=== PATIENT | male | born 1980 | race Caucasian/White ===

== ENCOUNTER 2020-10-11 11:17 | Outpatient (REF) | payer OTHER, SELFPAY | END 2020-10-11 11:18 | disposition home or self-care (01) | LOC: HO.HMGCLDS 11:17 | PROVIDERS: Visit Provider Internal Medicine | DX: Z20.822 Contact with and (suspected) exposure to COVID-19 (principal) | CPT/HCPCS: C9803; U0003; U0005 ==

== ENCOUNTER 2021-04-10 06:41 | Outpatient (REF) | payer OTHER, SELFPAY ==
[2021-04-10 11:35] LABS: Appearance Urine TURBID; Color Urine DK YELLOW; Glucose Urine UA NEG (NEG); Leukocyte Esterase Urine TRACE (NEG); Nitrite Urine POS (NEG); Specific Gravity - Urine >= 1.030 (1.005-1.025); UACC Culture Trigger YES; Urine Blood NEG (NEG); Urine Ketones NEG (NEG); Urine Protein 1+ MG/DL (NEG-TRACE)
[2021-04-10 11:39] LABS: MANUAL DIFF FLAG NO
[2021-04-10 11:45] LABS: Basophils Absolute Auto 0.1 X10*3/uL (0.0-0.2); Basophils Percent Auto 1.3 % (0-2); Eosinophils Absolute Auto 0.4 X10*3/uL (0.0-0.4); Eosinophils Percent Auto 4.2 % (0-4); Hematocrit 40.3 % (42-52); Hemoglobin 12.5 g/dl (14.0-18.0); Imm Gran Abs Auto 0.03 X10*3/uL (0.00-0.03); Imm Gran Pct Auto 0.4 % (0.0-0.4); Lymphocytes Absolute Auto 1.6 X10*3/uL (1.2-4.9); Lymphocytes Percent Auto 19.4 % (20-40); Mean Corpuscular Hemoglobin 26.9 pg (27.0-33.0); Mean Corpuscular Volume 86.9 fL (80-98); Mean Platelet Volume 10.5 fL (9.4-12.4); Monocytes Absolute Auto 0.9 X10*3/uL (0.1-1.2); Monocytes Percent Auto 10.9 % (2-11); Neutrophils Absolute Auto 5.4 X10*3/uL (2.0-8.3); Neutrophils Percent Auto 63.8 % (45-73); Platelet Count 271 X10*3/uL (160-400); Red Blood Count 4.64 X10*6/uL (4.60-5.80); Red Cell Distribution Width 18.2 % (11.0-16.0); White Blood Count 8.4 X10*3/uL (4.8-10.8)
[2021-04-10 12:17] LABS: Alanine Aminotransferase 65 U/L (0-40); Albumin Level 3.9 g/dL (3.5-5.0); Alkaline Phosphatase 160 U/L (39-117); Anion Gap 18 (12-20); Aspartate Amino Transferase 132 U/L (5-37); Blood Urea Nitrogen 4 mg/dL (9-16); Calcium 9.1 mg/dL (8.4-10.2); Carbon Dioxide 21 mmol/L (22-29); Chloride 105 mmol/L (96-108); Cholesterol 161 mg/dL; Estimated Glomerular Filt Rate > 60; Glucose Fasting 98 mg/dL (60-99); HDL Cholesterol 40 mg/dL; LDL Cholesterol Calculated 98 mg/dl; Potassium 3.7 mmol/L (3.3-5.1); Sodium 140 mmol/L (135-145); Triglycerides 116 mg/dL
[2021-04-10 12:18] LABS: TSH reflex Free T4 2.55 uIU/mL (0.32-4.0)
[2021-04-10 12:43] LABS: OBS Int Ctl Valid YES; OBS1 NEGATIVE (NEGATIVE)
[2021-04-10 12:59] LABS: Amorphous Sediment Urine 4+ /LPF; Bacteria Urine TRACE /LPF; RBC Urine 0 /HPF (0); Squamous Epithelial Cell Urine TRACE /LPF; WBC Urine 0-2 /HPF (0-4)
[2021-04-10 13:52] LABS: CDiff Gene PCR NEGATIVE (Negative)
[2021-04-10 14:13] LABS: Leukocytes Stool Qualitative NEGATIVE (NEGATIVE)
== END 2021-04-10 06:42 | disposition home or self-care (01) ==
LOC: HO.HMGCLDS 06:41
PROVIDERS: PCP Nurse Practitioner Family; Visit Provider Nurse Practitioner Family
DX: Z00.00 Encounter for general adult medical examination without abnormal findings (principal); R19.7 Diarrhea, unspecified
CPT/HCPCS: 36415; 80053; 80061; 81001; 82272; 84443; 85025; 87045; 87046; 87086; 87177; 87209; 87329; 87338; 87493; 89055

== ENCOUNTER 2021-04-30 12:04 | Outpatient (REF) | payer OTHER, SELFPAY ==
[2021-05-01 09:05] LABS: HBS Num1 24.54 mIU/mL (0-7.99); HBc Num1 0.04 S/CO (0.00-0.79); HBsAGNum1 0.15 S/CO (0.00-0.99); Hepatitis A Antibody IgM 0.16 Index (0-0.79); Hepatitis B Core Antibody Nonreactive (Nonreactive); Hepatitis B Surface Antigen Negative (Negative); ~HepC Num1 0.67 S/CO (0.00-0.79); ~Hepatitis A Antibody IgM Nonreactive (Nonreactive); ~Hepatitis B Surface Antibody REACTIVE (Nonreactive); ~Hepatitis C Antibody Nonreactive (Nonreactive)
== END 2021-04-30 12:05 | disposition home or self-care (01) ==
LOC: HO.HMGCLDS 12:04
PROVIDERS: PCP Nurse Practitioner Family; Visit Provider Nurse Practitioner Family
DX: R74.8 Abnormal levels of other serum enzymes (principal)
CPT/HCPCS: 36415; 86704; 86706; 86709; 86803; 87340

== ENCOUNTER 2021-05-14 10:09 | Outpatient (REF) | payer OTHER, SELFPAY ==
--- NOTE | ~2021-05-14 | US_ITS ---
EXAMINATION: US ABDOMEN COMPLETE CLINICAL INFORMATION: Abnormal levels of other serum enzymes. COMPARISON: None TECHNIQUE: Real-time imaging of the abdominal viscera. FINDINGS: PANCREAS: Normal. ABDOMINAL AORTA: The proximal, mid, and distal segments are normal in caliber. INFERIOR VENA CAVA: Visualized portions are normal. LIVER: The liver is normal in size. The liver contour is normal. There is increased liver echogenicity. No focal hepatic lesion. There is no intrahepatic biliary duct dilatation seen. GALLBLADDER: Normal. The gallbladder is physiologically distended without evidence of stones, sludge, polyps, wall thickening or pericholecystic fluid. COMMON BILE DUCT: Normal in caliber measuring 0.3 cm in diameter. RIGHT KIDNEY: Normal. No hydronephrosis. No renal calculi or focal parenchymal lesions. The kidney measures 10.4 cm in maximum dimension. LEFT KIDNEY: There is an echogenic area in the midpole question stone versus calcification measuring 0.47 x 0.34 x 0.30 cm. Also visualized are multiple echogenic areas, question vascular calcifications. No hydronephrosis or focal parenchymal lesions. The kidney measures 9.9 cm in maximum dimension. SPLEEN: Normal. The spleen measures 10.2 cm in maximum dimension. FREE FLUID: None. US/US abdomen complete IMPRESSION: Diffuse hepatic steatosis without focal lesion. Multiple small echogenic areas in the left kidney likely vascular calcifications. Focal echogenic area in the midpole left kidney, question stone versus vascular calcification. Rest of the abdominal ultrasound is unremarkable.
== END 2021-05-14 10:10 | disposition home or self-care (01) ==
LOC: HO.HMGCX 10:09
PROVIDERS: PCP Nurse Practitioner Family; Visit Provider Nurse Practitioner Family
DX: R74.8 Abnormal levels of other serum enzymes (principal)
CPT/HCPCS: 76700

== ENCOUNTER 2021-05-15 | Outpatient (REF) | payer OTHER, SELFPAY ==
[2021-05-15 11:23] LABS: Appearance Urine CLEAR; Color Urine STRAW; Glucose Urine UA NEG (NEG); Leukocyte Esterase Urine NEG (NEG); Nitrite Urine NEG (NEG); Specific Gravity - Urine <= 1.005 (1.005-1.025); Urine Blood NEG (NEG); Urine Ketones NEG (NEG); Urine Protein NEG (NEG-TRACE)
[2021-05-15 14:30] LABS: CT PCR NOT DETECTED (Not Detect.); NG PCR NOT DETECTED (Not Detect.)
== END 2021-05-15 00:01 | disposition home or self-care (01) ==
LOC: HO.HMGCLNP
PROVIDERS: Visit Provider Nurse Practitioner Family
DX: Z11.3 Encounter for screening for infections with a predominantly sexual mode of transmission (principal); N39.0 Urinary tract infection, site not specified
CPT/HCPCS: 81003; 87491; 87591

== ENCOUNTER 2022-02-26 14:21 | Outpatient (REF) | payer OTHER, SELFPAY | END 2022-02-26 14:22 | disposition home or self-care (01) | LOC: HO.LNP 14:21 | PROVIDERS: Visit Provider Emergency Medicine | DX: S99.911D Unspecified injury of right ankle, subsequent encounter (principal); A49.01 Methicillin susceptible Staphylococcus aureus infection, unspecified site | CPT/HCPCS: 87071; 87077; 87186; 87205 ==

== ENCOUNTER 2022-03-28 14:55 | Inpatient (IN) | payer OTHER, SELFPAY ==
--- NOTE | ~2022-03-28 | XR_ITS ---
EXAMINATION: XR chest 2V CLINICAL INFORMATION: Reason for Exam weakness COMPARISON: No prior chest x-ray available in our system for comparison at the time of this dictation. TECHNIQUE: XR chest 2V Lungs and Alaina: Both lungs are clear. Pleura: Normal. Costophrenic angles are sharp. No pneumothorax. Heart: The heart is normal in size. Mediastinum: The mediastinum is within normal limits.. Bones: Skeletal structures included are normal for patient's age. XR/XR chest 2V IMPRESSION: Normal chest x-ray.
--- NOTE | ~2022-03-28 | CT_ITS ---
EXAMINATION: CT abdomen pelvis w IV con CLINICAL INFORMATION: Reason for Exam AND pain, nausea, WT loss COMPARISON: No prior CT available for comparison. TECHNIQUE: Multidetector volumetric imaging was performed from the superior aspect of the liver through the pubic symphysis 85 mL Omnipaque 350 injected Sagittal and coronal reformatted images were obtained on the technologist's workstation. This CT examination was performed using dose optimization techniques as appropriate, variously including the following: *Automated exposure control *Adjustment of mA and/or kV according to patient size (this includes techniques or standardized protocols for targeted exams where dose is matched to indication/reason for exam; i.e. extremities or head) *Use of iterative reconstruction technique DLP: 306 mGy-cm FINDINGS: LOWER THORAX: Included lung bases are clear. HEPATOBILIARY: Diffusely hypodense liver suggesting steatosis. No focal hepatic lesions. No biliary ductal dilatation. GALLBLADDER: Gallbladder unremarkable. SPLEEN: Spleen is normal in size. PANCREAS: No focal mass or ductal dilatation. STOMACH AND GASTROINTESTINAL TRACT: Stomach is grossly unremarkable. No evidence of bowel obstruction. There is mild circumferential wall thickening terminal ileum, without evidence of bowel obstruction, although nonspecific, cannot rule out the possibility of IBD Crohn's or terminal ileitis. ADRENALS: No adrenal nodules. KIDNEYS/URETERS: No hydronephrosis, stones or solid mass lesions. URINARY BLADDER: Partially decompressed. PELVIC VISCERA: Unremarkable PERITONEUM: No free air or fluid. LYMPH NODES: No lymphadenopathy. VASCULAR:Abdominal aorta normal in size, no aneurysm found. BONES, ABDOMINAL WALL AND SOFT TISSUES: Age-appropriate changes of the spine and skeletal system, no destructive osteolytic or osteosclerotic bone lesion found CT/CT abdomen pelvis w IV con IMPRESSION: *Mild circumferential wall thickening of the terminal ileum at the TI junction, although nonspecific and could be peristalsis, cannot rule out the possibility of IBD/Crohn's, no evidence of obstruction or complication. Please correlate with patient's clinical history, may consider GI consultation. *No CT evidence of intra-abdominal mass or lymphadenopathy. *Mildly hypodense liver suggesting steatosis.
[2022-03-28 15:11] VITALS: BP 121/89; PULSE 106; RESP 18; TEMP 37.2; O2SAT 100; BMI 19.0
--- NOTE | 2022-03-28 15:16 | ECG_ITS ---
Test Reason : WEAKNESS Blood Pressure : / mmHG Vent. Rate : 110 BPM Atrial Rate : 110 BPM P-R Int : 084 ms QRS Dur : 096 ms QT Int : 364 ms P-R-T Axes : 078 082 -83 degrees QTc Int : 492 ms Sinus tachycardia with short SD Lateral infarct , age undetermined Possible Inferior infarct , age undetermined Abnormal ECG No previous ECGs available Referred By: Generic ED Physician Electronically Signed By:SHAGGY MUNOZ
[2022-03-28 15:29] LABS: MANUAL DIFF FLAG NO
[2022-03-28 15:32] LABS: Basophils Absolute Auto 0.1 X10*3/uL (0.0-0.2); Basophils Percent Auto 0.3 % (0-2); Eosinophils Absolute Auto 0.1 X10*3/uL (0.0-0.4); Eosinophils Percent Auto 0.5 % (0-4); Hematocrit 44.7 % (42.0-52.0); Hemoglobin 16.2 g/dl (14.0-18.0); Imm Gran Pct Auto 0.6 % (0.0-0.4); Lymphocytes Absolute Auto 1.6 X10*3/uL (1.2-4.9); Lymphocytes Percent Auto 9.4 % (20-40); Mean Corpuscular HGB Conc 36.2 g/dl (31.0-36.0); Mean Corpuscular Hemoglobin 35.5 pg (27.0-33.0); Mean Platelet Volume 9.6 fL (9.4-12.4); Monocytes Absolute Auto 1.1 X10*3/uL (0.1-1.2); Monocytes Percent Auto 6.8 % (2-11); NRBC Pct Auto 0.1 /100WBC (0.0-0.2); Neutrophils Absolute Auto 13.6 x10*3/uL (2.0-8.3); Neutrophils Percent Auto 82.4 % (45-73); Platelet Count 129 X10*3/uL (160-400); Red Blood Count 4.56 X10*6/uL (4.60-5.80); Red Cell Distribution Width 15.9 % (11.0-16.0); White Blood Count 16.6 X10*3/uL (4.8-10.8)
[2022-03-28 15:47] LABS: COVID-19 Test Negative (Negative); IDNOW Serial# 16C4AD1C
[2022-03-28 15:49] LABS: Alanine Aminotransferase 45 U/L (0-40); Albumin Level 3.5 g/dL (3.5-5.0); Alkaline Phosphatase 224 U/L (39-117); Anion Gap 20 (12-20); Aspartate Amino Transferase 56 U/L (5-37); Bilirubin Direct 0.7 mg/dL (0.0-0.5); Bilirubin Total 1.4 mg/dL (0.0-1.0); Blood Urea Nitrogen 8 mg/dL (9-16); Calcium 9.4 mg/dL (8.4-10.2); Carbon Dioxide 28 mmol/L (22-29); Chloride 89 mmol/L (96-108); Creatinine Clr Calc Pharmacy 129.7; Estimated Glomerular Filt Rate > 60; Ethanol < 10 mg/dL; Glucose Random 113 mg/dL (60-115); Lipase 101 U/L (8-78); Sodium 134 mmol/L (135-145); Total Protein 6.4 g/dL (6.5-8.0)
[2022-03-28 15:50] LABS: Troponin-I High Sensitivity 11.4 ng/L (<3.5-35.0)
[2022-03-28 15:53] LABS: Prothrombin Time 11.5 SEC (10.0-13.1)
[2022-03-28 16:00] VITALS: BP 125/87; PULSE 102; RESP 16; O2SAT 96
--- NOTE | 2022-03-28 16:08 | PC.NURSE ---
Pt reports generalized weakness, poor po intact, lower abd discomfort with associated constipation x 4 days. Skin is pale, warm and dry. NSR on monitor. Last drink last night around 2200, states only drinks at night including 1 sleeve of nips and a bottle and twisted tea nightly. Awaits MD evaluation. IV placed to left AC
[2022-03-28 16:13] LABS: Magnesium 1.1 mg/dL (1.6-2.6)
[2022-03-28] MEDS: Magnesium Sulfate/H2O 2 GM/50 ML PIGGYBACK IV (16:23)
--- NOTE | 2022-03-28 16:28 | ED.GENADULT ---
HPI - General Adult General Chief complaint: General Medical <Lacie James CRISTOPHER Max - Last Filed: 03/28/22 21:50> Stated complaint: Legs/Arms numbness/Nausea <Lacie Erikamarc Max CNP - Last Filed: 03/28/22 21:50> Time Seen by Provider: 03/28/22 15:18 <Lacie Erikamarc Max CNP - Last Filed: 03/28/22 21:50> Source: patient <Lacie James CRISTOPHER Max - Last Filed: 03/28/22 21:50> Mode of arrival: ambulatory <Lacie James CRISTOPHER Max - Last Filed: 03/28/22 21:50> Limitations: no limitations <Lacie Gomezmarc Max CNP - Last Filed: 03/28/22 21:50> History of Present Illness HPI narrative: Patient presents emergency department for evaluation of generalized weakness and body aches. Reports onset of symptoms to be 4 days ago, associated ?mental fog?. Stating that his ?body is shutting down?. He does endorse drinking 10 nips of fireball daily, denies any recent decrease in his alcohol consumption. Denies past alcohol withdrawal syndrome or seizures. Has associated diffuse abdominal pain, nausea, decreased appetite, constipation. Reports over the past, of months he has lost approximately 20 lb. <Lacie Erikamarc Max CNP - Last Filed: 03/28/22 21:50> Related Data Home medications: Previous Rx's Medication Instructions Recorded sulfamethoxazole 800 1 tab PO BID 7 days #14 tabs 03/13/22 mg-trimethoprim 160 mg tablet (Bactrim DS) <Lacie Max CNP - Last Filed: 03/28/22 21:50> Allergies/adverse reactions: Allergies Allergy/AdvReac Type Severity Reaction Status Date / Time No Known Allergies Allergy Verified 03/13/22 08:19 <Lacie Max CNP - Last Filed: 03/28/22 21:50> Review of Systems Review of Systems: Constitutional : Positive Weight loss, No Fever, No Chills, positive fatigue, positive body aches ENT/Mouth :? No sore throat, No Rhinorrhea Eyes: No Swelling, No Redness Cardiovascular : No Chest Pain, No SOB, No Edema Respiratory : No Cough, No Sputum, No Wheezing Gastrointestinal : Positive Nausea, Positive Vomiting, no Diarrhea, positive abdominal pain, No Hematochezia, No Melena Genitourinary : No Dysuria, No Urinary Frequency, No Hematuria, No Urgency? Musculoskeletal : No joint pain, positive Myalgias, No Joint Swelling Skin : No Skin Lesions, No rash Neuro : No Weakness, positive Numbness to upper and lower extremities, No Dizziness, No Headache Psych : No Anxiety/Panic, No Depression Heme/Lymph: No Bruising, No Lymphadenopathy Endocrine : No Polyuria, No Polydipsia <Lacie Max CNP - Last Filed: 03/28/22 21:50> Yes all other systems are reviewed and are negative <Lacie Max CNP - Last Filed: 03/28/22 21:50> [facility] Past Medical History Attestation statement: The following information was validated with the patient. <Lacie Max CNP - Last Filed: 03/28/22 21:50> Source: old records reviewed <Lacie Max CNP - Last Filed: 03/28/22 21:50> Social History Social History: Social History Housing: Apartment Alcohol intake: current Alcohol type: hard liquor Patient Tobacco Use Status: Current everyday Tobacco user Tobacco use type: Cigarette Cigarettes Per Day: 10 e-Cigarette/Vaping Use: Never Used Second Hand Smoke Exposure: Yes Use of substances other than those prescribed or required for medical reasons: No Advance Directives: No Advance Directives Information Provided: No service: No Current occupational status: employed Current occupation: [employer] Current occupational exposures/hazards: No <Lacie Max CNP - Last Filed: 03/28/22 21:50> Physical Exam ED Vital Signs: Vital Signs - 24 hr 03/28/22 15:11 03/28/22 16:00 03/28/22 17:53 Temperature 98.9 F 98 F Pulse Rate 106 H 102 H 113 H Respiratory Rate 18 16 16 Blood Pressure 121/89 125/87 110/73 Pulse Oximetry 100 96 97 Oxygen Delivery Method Room Air Room Air Room Air 03/28/22 18:39 03/29/22 02:00 Temperature 97.6 F Pulse Rate 108 H 103 H Respiratory Rate 20 Blood Pressure 112/79 104/63 Pulse Oximetry 100 97 Oxygen Delivery Method Room Air Room Air BMI result Body Mass Index 19.0 <Lacie James CRISTOPHER Max - Last Filed: 03/28/22 21:50> Vital Signs - 24 hr 03/28/22 15:11 03/28/22 16:00 03/28/22 17:53 Temperature 98.9 F 98 F Pulse Rate 106 H 102 H 113 H Respiratory Rate 18 16 16 Blood Pressure 121/89 125/87 110/73 Pulse Oximetry 100 96 97 Oxygen Delivery Method Room Air Room Air Room Air 03/28/22 18:39 03/29/22 02:00 Temperature 97.6 F Pulse Rate 108 H 103 H Respiratory Rate 20 Blood Pressure 112/79 104/63 Pulse Oximetry 100 97 Oxygen Delivery Method Room Air Room Air BMI result Body Mass Index 19.0 <Ladonna Benz [employer] - Last Filed: 03/29/22 02:59> Vital Signs - 24 hr 03/28/22 15:11 03/28/22 16:00 03/28/22 17:53 Temperature 98.9 F 98 F Pulse Rate 106 H 102 H 113 H Respiratory Rate 18 16 16 Blood Pressure 121/89 125/87 110/73 Pulse Oximetry 100 96 97 Oxygen Delivery Method Room Air Room Air Room Air 03/28/22 18:39 03/29/22 02:00 Temperature 97.6 F Pulse Rate 108 H 103 H Respiratory Rate 20 Blood Pressure 112/79 104/63 Pulse Oximetry 100 97 Oxygen Delivery Method Room Air Room Air BMI result Body Mass Index 19.0 <April Millan MD - Last Filed: 03/29/22 00:02> Appearance: Alert.?Oriented to person, place and time. No acute distress.?Normal affect. Eyes: Pupils equal, round and reactive to light.? Sclera white. ENT: Pharynx normal.?? Neck: Normal inspection.? Neck supple.?? CVS: Heart sounds normal. Normal heart rate and rhythm.? Pulses normal.?? Respiratory: No respiratory distress.? Lung sounds clear to auscultation bilaterally?? Abdomen: Soft with diffuse upper abdominal tenderness. Normoactive bowel sounds. No pulsatile mass.?? Skin: Skin warm and dry.? Normal skin color.? No jaundice. Extremities: No lower extremity edema.? No calf ttp? Neuro: Moves all extremities spontaneously. Sensation intact bilaterally. CN II-XII intact. No focal neuro deficits. Ambulates with normal steady gait. <Lacie Max CNP - Last Filed: 03/28/22 21:50> Course Course Course Narrative: Patient is a 42-year-old male with past medical history of alcohol use disorder presents to emergency department for evaluation of multiple complaints as noted in HPI. Patient appears fatigued and run down. Tachycardic, afebrile, no hypoxia or tachypnea. Blood pressure is stable. Labs initiated from triage. <Lacie Max CNP - Last Filed: 03/28/22 21:50> Patient is a 42-year-old male with past medical history of alcohol use disorder presents to emergency department for evaluation of multiple complaints as noted in HPI. Patient appears fatigued and run down. Tachycardic, afebrile, no hypoxia or tachypnea. Blood pressure is stable. Labs initiated from triage. <April Millan MD - Last Filed: 03/29/22 00:02> Reevaluation(s) Reevaluation #1: First contact with patient, reviewed labs obtained from triage. CBC reveals a leukocytosis at 16.6 and thrombocytopenia. CMP electrolyte abnormalities hypokalemia will replace with 40 mEq orally and 20 mEq IV, hypomagnesemia will replace 2 g IV and 400 mg orally. Elevated LFTs. Lipase 101. Troponin 11.4, EKG reveals sinus tachycardia with short FL, No acute ischemic findings. At this time, sepsis is not suspected there is no clear source of infection. Patient last consume alcohol approximately 20 hours ago, suspect leukocytosis and tachycardia to be reactive secondary to alcohol withdrawal and. or vomiting. Urinalysis, chest x-ray, CT of the abdomen and pelvis are pending, blood cultures and lactic acid to be obtained <Lacie Max CNP - Last Filed: 03/28/22 21:50> Time: 16:48 <Lacie Max CNP - Last Filed: 03/28/22 21:50> Reevaluation #2: Chest x-ray reveals no acute abnormalities. CT of the abdomen and pelvis reveals mild circumferential wall thickening of the terminal ileum, nonspecific and may be peristalsis but cannot rule out possibility of inflammatory bowel disease/Crohn's, there is no evidence of obstruction. patient has been tolerating oral fluids as well as crackers. Will repeat electrolytes and magnesium at this time. Again, no clear infectious etiology at this time. Patient will likely require outpatient evaluation for inflammatory bowel disease. <Lacie Max CNP - Last Filed: 03/28/22 21:50> Time: 19:57 <Lacie Max CNP - Last Filed: 03/28/22 21:50> Reevaluation #3: Potassium and magnesium have normalized. Patient tolerating oral intake. Discussed plan of care for discharge home, outpatient follow-up with Gastroenterology for further evaluation of possible inflammatory bowel disorder. Reviewed worsening signs and symptoms return back to emergency department for. All questions were answered. Patient ambulatory with a steady gait, discharged home in stable condition. <Lacie Max CNP - Last Filed: 03/28/22 21:50> Time: 20:53 <Lacie Max CNP - Last Filed: 03/28/22 21:50> Additional Reevaluation(s): 23:39 I re-evaluated this patient based on concerns from the case management consult. Patient is having a difficult time walking, states that he has progressive weakness over the past 4 days, started with numbness and now he is unable to walk. He does not have patellar or Achilles reflexes. I did discuss this case with Dr. Millan, plan is for lumbar puncture, Lyme, and B12. 01:10 consent was signed, patient verbalized understanding of risks of procedure. Please refer to procedure note for full details. Patient tolerated procedure well. 02:57 CSF total protein 56.1, I did attempt to order IVIG however it is unavailable for us to order at this time. I did discuss this with pharmacy, pharmacist on-call states that only inpatient pharmacy can order this medication, and they are unable to profile it for order verification. I did discuss this finding with hospitalist, hospitalist will admit this patient. <Ladonna Benz NP - Last Filed: 03/29/22 02:59> 23:39 I re-evaluated this patient based on concerns from the case management consult. Patient is having a difficult time walking, states that he has progressive weakness over the past 4 days, started with numbness and now he is unable to walk. He does not have patellar or Achilles reflexes. I did discuss this case with Dr. Millan, plan is for lumbar puncture, Lyme, and B12. <April Millan MD - Last Filed: 03/29/22 00:02> Medical Decision Making Medical Records Medical records reviewed: Yes I reviewed the patient's medical records. <Ladonna Benz NP - Last Filed: 03/29/22 02:59> Lab Data Lab results reviewed: Yes I reviewed the patient's lab results. <Ladonna Benz NP - Last Filed: 03/29/22 02:59> Result diagrams: : 03/28/22 15:20 03/28/22 20:16 <Lacie Max CNP - Last Filed: 03/28/22 21:50> Labs: Lab Results 03/28/22 03/28/22 03/28/22 Range/Units 15:20 15:20 15:23 WBC 16.6 H (4.8-10.8) X10*3/uL RBC 4.56 L (4.60-5.80) X10*6/uL Hgb 16.2 (14.0-18.0) g/dl Hct 44.7 (42.0-52.0) % MCV 98.0 (80.0-98.0) fL MCH 35.5 H (27.0-33.0) pg MCHC 36.2 H (31.0-36.0) g/dl RDW 15.9 (11.0-16.0) % Plt Count 129 L (160-400) X10*3/uL MPV 9.6 (9.4-12.4) fL Immature Gran % (Auto) 0.6 H (0.0-0.4) % Neut % (Auto) 82.4 H (45-73) % Lymph % (Auto) 9.4 L (20-40) % [place] % (Auto) 6.8 (2-11) % Eos % (Auto) 0.5 (0-4) % Baso % (Auto) 0.3 (0-2) % Lymph # (Auto) 1.6 (1.2-4.9) X10*3/uL [place] # (Auto) 1.1 (0.1-1.2) X10*3/uL Eos # (Auto) 0.1 (0.0-0.4) X10*3/uL Baso # (Auto) 0.1 (0.0-0.2) X10*3/uL Abs Immat Gran (auto) 0.10 H (0.00-0.03) X10*3/uL Absolute Neuts (auto) 13.6 H (2.0-8.3) x10*3/uL Absolute Nucleated RBC 0.020 H (0.0-0.012) X10*3/uL Nucleated RBC % (auto) 0.1 (0.0-0.2) /100WBC PT (10.0-13.1) SEC INR (0.9-1.1) Sodium 134 L (135-145) mmol/L Potassium 3.0 L (3.3-5.1) mmol/L Chloride 89 L (96-108) mmol/L Carbon Dioxide 28 (22-29) mmol/L Anion Gap 20 (12-20) BUN 8 L (9-16) mg/dL Creatinine 0.68 (0.5-1.4) mg/dL Estim Creat Clear Calc 129.7 Estimated GFR > 60 Random Glucose 113 (60-115) mg/dL Lactic Acid (0.5-2.0) mmol/L Lactic Acid F/U @ 2Hr (0.5-2.0) mmol/L Lactic Acid F/U @ 4Hr (0.5-2.0) mmol/L Calcium 9.4 (8.4-10.2) mg/dL Magnesium (1.6-2.6) mg/dL Total Bilirubin 1.4 H (0.0-1.0) mg/dL Direct Bilirubin 0.7 H (0.0-0.5) mg/dL AST 56 H (5-37) U/L ALT 45 H (0-40) U/L Alkaline Phosphatase 224 H D (39-117) U/L Troponin I High Sens (<3.5-35.0) ng/L Total Protein 6.4 L (6.5-8.0) g/dL Albumin 3.5 (3.5-5.0) g/dL Lipase 101 H (8-78) U/L Urine Color Urine Appearance Urine pH (5.0-9.0) Ur Specific [place] (1.005-1.025) Urine Protein (Neg-Trace) mg/dL Urine Glucose (UA) (Negative) mg/dL Urine Ketones (Negative) mg/dL Urine Blood (Negative) Urine Nitrite (Negative) Ur Leukocyte Esterase (Negative) CSF Tube Number CSF Volume ML CSF Appearance CSF Color CSF WBC MM*3 CSF RBC MM*3 CSF Lymphocytes % CSF Appearance (b) CSF Glucose mg/dL CSF Total Protein (15-45) mg/dL Ethyl Alcohol < 10 mg/dL COVID-19 (GIRMA) Negative (Negative) COVID-19 Clin Com See Note 03/28/22 03/28/22 03/28/22 Range/Units 15:24 15:39 15:39 WBC (4.8-10.8) X10*3/uL RBC (4.60-5.80) X10*6/uL Hgb (14.0-18.0) g/dl Hct (42.0-52.0) % MCV (80.0-98.0) fL MCH (27.0-33.0) pg MCHC (31.0-36.0) g/dl RDW (11.0-16.0) % Plt Count (160-400) X10*3/uL MPV (9.4-12.4) fL Immature Gran % (Auto) (0.0-0.4) % Neut % (Auto) (45-73) % Lymph % (Auto) (20-40) % [place] % (Auto) (2-11) % Eos % (Auto) (0-4) % Baso % (Auto) (0-2) % Lymph # (Auto) (1.2-4.9) X10*3/uL [place] # (Auto) (0.1-1.2) X10*3/uL Eos # (Auto) (0.0-0.4) X10*3/uL Baso # (Auto) (0.0-0.2) X10*3/uL Abs Immat Gran (auto) (0.00-0.03) X10*3/uL Absolute Neuts (auto) (2.0-8.3) x10*3/uL Absolute Nucleated RBC (0.0-0.012) X10*3/uL Nucleated RBC % (auto) (0.0-0.2) /100WBC PT 11.5 (10.0-13.1) SEC INR 1.0 (0.9-1.1) Sodium (135-145) mmol/L Potassium (3.3-5.1) mmol/L Chloride (96-108) mmol/L Carbon Dioxide (22-29) mmol/L Anion Gap (12-20) BUN (9-16) mg/dL Creatinine (0.5-1.4) mg/dL Estim Creat Clear Calc Estimated GFR Random Glucose (60-115) mg/dL Lactic Acid (0.5-2.0) mmol/L Lactic Acid F/U @ 2Hr (0.5-2.0) mmol/L Lactic Acid F/U @ 4Hr (0.5-2.0) mmol/L Calcium (8.4-10.2) mg/dL Magnesium 1.1 L* (1.6-2.6) mg/dL Total Bilirubin (0.0-1.0) mg/dL Direct Bilirubin (0.0-0.5) mg/dL AST (5-37) U/L ALT (0-40) U/L Alkaline Phosphatase (39-117) U/L Troponin I High Sens 11.4 (<3.5-35.0) ng/L Total Protein (6.5-8.0) g/dL Albumin (3.5-5.0) g/dL Lipase (8-78) U/L Urine Color Urine Appearance Urine pH (5.0-9.0) Ur Specific [place] (1.005-1.025) Urine Protein (Neg-Trace) mg/dL Urine Glucose (UA) (Negative) mg/dL Urine Ketones (Negative) mg/dL Urine Blood (Negative) Urine Nitrite (Negative) Ur Leukocyte Esterase (Negative) CSF Tube Number CSF Volume ML CSF Appearance CSF Color CSF WBC MM*3 CSF RBC MM*3 CSF Lymphocytes % CSF Appearance (b) CSF Glucose mg/dL CSF Total Protein (15-45) mg/dL Ethyl Alcohol mg/dL COVID-19 (GIRMA) (Negative) COVID-19 Clin Com 03/28/22 03/28/22 03/28/22 Range/Units 17:00 19:01 19:22 WBC (4.8-10.8) X10*3/uL RBC (4.60-5.80) X10*6/uL Hgb (14.0-18.0) g/dl Hct (42.0-52.0) % MCV (80.0-98.0) fL MCH (27.0-33.0) pg MCHC (31.0-36.0) g/dl RDW (11.0-16.0) % Plt Count (160-400) X10*3/uL MPV (9.4-12.4) fL Immature Gran % (Auto) (0.0-0.4) % Neut % (Auto) (45-73) % Lymph % (Auto) (20-40) % [place] % (Auto) (2-11) % Eos % (Auto) (0-4) % Baso % (Auto) (0-2) % Lymph # (Auto) (1.2-4.9) X10*3/uL [place] # (Auto) (0.1-1.2) X10*3/uL Eos # (Auto) (0.0-0.4) X10*3/uL Baso # (Auto) (0.0-0.2) X10*3/uL Abs Immat Gran (auto) (0.00-0.03) X10*3/uL Absolute Neuts (auto) (2.0-8.3) x10*3/uL Absolute Nucleated RBC (0.0-0.012) X10*3/uL Nucleated RBC % (auto) (0.0-0.2) /100WBC PT (10.0-13.1) SEC INR (0.9-1.1) Sodium (135-145) mmol/L Potassium (3.3-5.1) mmol/L Chloride (96-108) mmol/L Carbon Dioxide (22-29) mmol/L Anion Gap (12-20) BUN (9-16) mg/dL Creatinine (0.5-1.4) mg/dL Estim Creat Clear Calc Estimated GFR Random Glucose (60-115) mg/dL Lactic Acid 2.1 H* (0.5-2.0) mmol/L Lactic Acid F/U @ 2Hr 2.3 H* (0.5-2.0) mmol/L Lactic Acid F/U @ 4Hr (0.5-2.0) mmol/L Calcium (8.4-10.2) mg/dL Magnesium (1.6-2.6) mg/dL Total Bilirubin (0.0-1.0) mg/dL Direct Bilirubin (0.0-0.5) mg/dL AST (5-37) U/L ALT (0-40) U/L Alkaline Phosphatase (39-117) U/L Troponin I High Sens (<3.5-35.0) ng/L Total Protein (6.5-8.0) g/dL Albumin (3.5-5.0) g/dL Lipase (8-78) U/L Urine Color Yellow Urine Appearance Clear Urine pH 8.5 (5.0-9.0) Ur Specific [place] >= 1.030 H (1.005-1.025) Urine Protein Negative (Neg-Trace) mg/dL Urine Glucose (UA) Negative (Negative) mg/dL Urine Ketones Negative (Negative) mg/dL Urine Blood Negative (Negative) Urine Nitrite Negative (Negative) Ur Leukocyte Esterase Negative (Negative) CSF Tube Number CSF Volume ML CSF Appearance CSF Color CSF WBC MM*3 CSF RBC MM*3 CSF Lymphocytes % CSF Appearance (b) CSF Glucose mg/dL CSF Total Protein (15-45) mg/dL Ethyl Alcohol mg/dL COVID-19 (GIRMA) (Negative) COVID-19 Clin Com 03/28/22 03/28/22 03/29/22 Range/Units 20:16 23:03 01:39 WBC (4.8-10.8) X10*3/uL RBC (4.60-5.80) X10*6/uL Hgb (14.0-18.0) g/dl Hct (42.0-52.0) % MCV (80.0-98.0) fL MCH (27.0-33.0) pg MCHC (31.0-36.0) g/dl RDW (11.0-16.0) % Plt Count (160-400) X10*3/uL MPV (9.4-12.4) fL Immature Gran % (Auto) (0.0-0.4) % Neut % (Auto) (45-73) % Lymph % (Auto) (20-40) % [place] % (Auto) (2-11) % Eos % (Auto) (0-4) % Baso % (Auto) (0-2) % Lymph # (Auto) (1.2-4.9) X10*3/uL [place] # (Auto) (0.1-1.2) X10*3/uL Eos # (Auto) (0.0-0.4) X10*3/uL Baso # (Auto) (0.0-0.2) X10*3/uL Abs Immat Gran (auto) (0.00-0.03) X10*3/uL Absolute Neuts (auto) (2.0-8.3) x10*3/uL Absolute Nucleated RBC (0.0-0.012) X10*3/uL Nucleated RBC % (auto) (0.0-0.2) /100WBC PT (10.0-13.1) SEC INR (0.9-1.1) Sodium 133 L (135-145) mmol/L Potassium 3.5 (3.3-5.1) mmol/L Chloride 94 L (96-108) mmol/L Carbon Dioxide 26 (22-29) mmol/L Anion Gap 17 (12-20) BUN 7 L (9-16) mg/dL Creatinine 0.58 (0.5-1.4) mg/dL Estim Creat Clear Calc 152.0 Estimated GFR > 60 Random Glucose 101 (60-115) mg/dL Lactic Acid (0.5-2.0) mmol/L Lactic Acid F/U @ 2Hr (0.5-2.0) mmol/L Lactic Acid F/U @ 4Hr 1.7 (0.5-2.0) mmol/L Calcium 8.1 L D (8.4-10.2) mg/dL Magnesium 1.8 (1.6-2.6) mg/dL Total Bilirubin 1.4 H (0.0-1.0) mg/dL Direct Bilirubin (0.0-0.5) mg/dL AST 49 H (5-37) U/L ALT 37 (0-40) U/L Alkaline Phosphatase 197 H (39-117) U/L Troponin I High Sens (<3.5-35.0) ng/L Total Protein 5.4 L (6.5-8.0) g/dL Albumin 3.0 L (3.5-5.0) g/dL Lipase (8-78) U/L Urine Color Urine Appearance Urine pH (5.0-9.0) Ur Specific [place] (1.005-1.025) Urine Protein (Neg-Trace) mg/dL Urine Glucose (UA) (Negative) mg/dL Urine Ketones (Negative) mg/dL Urine Blood (Negative) Urine Nitrite (Negative) Ur Leukocyte Esterase (Negative) CSF Tube Number 1 CSF Volume ML CSF Appearance CSF Color CSF WBC MM*3 CSF RBC MM*3 CSF Lymphocytes % CSF Appearance (b) Clear, Colorless CSF Glucose 55 mg/dL CSF Total Protein 56.1 H (15-45) mg/dL Ethyl Alcohol mg/dL COVID-19 (GIR[facility]) (Negative) COVID-19 Clin Com 03/29/22 Range/Units 01:39 WBC (4.8-10.8) X10*3/uL RBC (4.60-5.80) X10*6/uL Hgb (14.0-18.0) g/dl Hct (42.0-52.0) % MCV (80.0-98.0) fL MCH (27.0-33.0) pg MCHC (31.0-36.0) g/dl RDW (11.0-16.0) % Plt Count (160-400) X10*3/uL MPV (9.4-12.4) fL Immature Gran % (Auto) (0.0-0.4) % Neut % (Auto) (45-73) % Lymph % (Auto) (20-40) % [place] % (Auto) (2-11) % Eos % (Auto) (0-4) % Baso % (Auto) (0-2) % Lymph # (Auto) (1.2-4.9) X10*3/uL [place] # (Auto) (0.1-1.2) X10*3/uL Eos # (Auto) (0.0-0.4) X10*3/uL Baso # (Auto) (0.0-0.2) X10*3/uL Abs Immat Gran (auto) (0.00-0.03) X10*3/uL Absolute Neuts (auto) (2.0-8.3) x10*3/uL Absolute Nucleated RBC (0.0-0.012) X10*3/uL Nucleated RBC % (auto) (0.0-0.2) /100WBC PT (10.0-13.1) SEC INR (0.9-1.1) Sodium (135-145) mmol/L Potassium (3.3-5.1) mmol/L Chloride (96-108) mmol/L Carbon Dioxide (22-29) mmol/L Anion Gap (12-20) BUN (9-16) mg/dL Creatinine (0.5-1.4) mg/dL Estim Creat Clear Calc Estimated GFR Random Glucose (60-115) mg/dL Lactic Acid (0.5-2.0) mmol/L Lactic Acid F/U @ 2Hr (0.5-2.0) mmol/L Lactic Acid F/U @ 4Hr (0.5-2.0) mmol/L Calcium (8.4-10.2) mg/dL Magnesium (1.6-2.6) mg/dL Total Bilirubin (0.0-1.0) mg/dL Direct Bilirubin (0.0-0.5) mg/dL AST (5-37) U/L ALT (0-40) U/L Alkaline Phosphatase (39-117) U/L Troponin I High Sens (<3.5-35.0) ng/L Total Protein (6.5-8.0) g/dL Albumin (3.5-5.0) g/dL Lipase (8-78) U/L Urine Color Urine Appearance Urine pH (5.0-9.0) Ur Specific [place] (1.005-1.025) Urine Protein (Neg-Trace) mg/dL Urine Glucose (UA) (Negative) mg/dL Urine Ketones (Negative) mg/dL Urine Blood (Negative) Urine Nitrite (Negative) Ur Leukocyte Esterase (Negative) CSF Tube Number 4 CSF Volume 1.3 ML CSF Appearance CLEAR CSF Color COLORLESS CSF WBC 1 MM*3 CSF RBC 0 MM*3 CSF Lymphocytes 100 % CSF Appearance (b) CSF Glucose mg/dL CSF Total Protein (15-45) mg/dL Ethyl Alcohol mg/dL COVID-19 (G[facility]) (Negative) COVID-19 Clin Com <Lacie Max, PHARMACIST INTERN - Last Filed: 03/28/22 21:50> Lab Results 03/28/22 03/28/22 03/28/22 Range/Units 15:20 15:20 15:23 WBC 16.6 H (4.8-10.8) X10*3/uL RBC 4.56 L (4.60-5.80) X10*6/uL Hgb 16.2 (14.0-18.0) g/dl Hct 44.7 (42.0-52.0) % MCV 98.0 (80.0-98.0) fL MCH 35.5 H (27.0-33.0) pg MCHC 36.2 H (31.0-36.0) g/dl RDW 15.9 (11.0-16.0) % Plt Count 129 L (160-400) X10*3/uL MPV 9.6 (9.4-12.4) fL Immature Gran % (Auto) 0.6 H (0.0-0.4) % Neut % (Auto) 82.4 H (45-73) % Lymph % (Auto) 9.4 L (20-40) % [place] % (Auto) 6.8 (2-11) % Eos % (Auto) 0.5 (0-4) % Baso % (Auto) 0.3 (0-2) % Lymph # (Auto) 1.6 (1.2-4.9) X10*3/uL [place] # (Auto) 1.1 (0.1-1.2) X10*3/uL Eos # (Auto) 0.1 (0.0-0.4) X10*3/uL Baso # (Auto) 0.1 (0.0-0.2) X10*3/uL Abs Immat Gran (auto) 0.10 H (0.00-0.03) X10*3/uL Absolute Neuts (auto) 13.6 H (2.0-8.3) x10*3/uL Absolute Nucleated RBC 0.020 H (0.0-0.012) X10*3/uL Nucleated RBC % (auto) 0.1 (0.0-0.2) /100WBC PT (10.0-13.1) SEC INR (0.9-1.1) Sodium 134 L (135-145) mmol/L Potassium 3.0 L (3.3-5.1) mmol/L Chloride 89 L (96-108) mmol/L Carbon Dioxide 28 (22-29) mmol/L Anion Gap 20 (12-20) BUN 8 L (9-16) mg/dL Creatinine 0.68 (0.5-1.4) mg/dL Estim Creat Clear Calc 129.7 Estimated GFR > 60 Random Glucose 113 (60-115) mg/dL Lactic Acid (0.5-2.0) mmol/L Lactic Acid F/U @ 2Hr (0.5-2.0) mmol/L Lactic Acid F/U @ 4Hr (0.5-2.0) mmol/L Calcium 9.4 (8.4-10.2) mg/dL Magnesium (1.6-2.6) mg/dL Total Bilirubin 1.4 H (0.0-1.0) mg/dL Direct Bilirubin 0.7 H (0.0-0.5) mg/dL AST 56 H (5-37) U/L ALT 45 H (0-40) U/L Alkaline Phosphatase 224 H D (39-117) U/L Troponin I High Sens (<3.5-35.0) ng/L Total Protein 6.4 L (6.5-8.0) g/dL Albumin 3.5 (3.5-5.0) g/dL Lipase 101 H (8-78) U/L Urine Color Urine Appearance Urine pH (5.0-9.0) Ur Specific [place] (1.005-1.025) Urine Protein (Neg-Trace) mg/dL Urine Glucose (UA) (Negative) mg/dL Urine Ketones (Negative) mg/dL Urine Blood (Negative) Urine Nitrite (Negative) Ur Leukocyte Esterase (Negative) CSF Tube Number CSF Volume ML CSF Appearance CSF Color CSF WBC MM*3 CSF RBC MM*3 CSF Lymphocytes % CSF Appearance (b) CSF Glucose mg/dL CSF Total Protein (15-45) mg/dL Ethyl Alcohol < 10 mg/dL COVID-19 (GIRMA) Negative (Negative) COVID-19 Clin Com See Note 03/28/22 03/28/22 03/28/22 Range/Units 15:24 15:39 15:39 WBC (4.8-10.8) X10*3/uL RBC (4.60-5.80) X10*6/uL Hgb (14.0-18.0) g/dl Hct (42.0-52.0) % MCV (80.0-98.0) fL MCH (27.0-33.0) pg MCHC (31.0-36.0) g/dl RDW (11.0-16.0) % Plt Count (160-400) X10*3/uL MPV (9.4-12.4) fL Immature Gran % (Auto) (0.0-0.4) % Neut % (Auto) (45-73) % Lymph % (Auto) (20-40) % [place] % (Auto) (2-11) % Eos % (Auto) (0-4) % Baso % (Auto) (0-2) % Lymph # (Auto) (1.2-4.9) X10*3/uL [place] # (Auto) (0.1-1.2) X10*3/uL Eos # (Auto) (0.0-0.4) X10*3/uL Baso # (Auto) (0.0-0.2) X10*3/uL Abs Immat Gran (auto) (0.00-0.03) X10*3/uL Absolute Neuts (auto) (2.0-8.3) x10*3/uL Absolute Nucleated RBC (0.0-0.012) X10*3/uL Nucleated RBC % (auto) (0.0-0.2) /100WBC PT 11.5 (10.0-13.1) SEC INR 1.0 (0.9-1.1) Sodium (135-145) mmol/L Potassium (3.3-5.1) mmol/L Chloride (96-108) mmol/L Carbon Dioxide (22-29) mmol/L Anion Gap (12-20) BUN (9-16) mg/dL Creatinine (0.5-1.4) mg/dL Estim Creat Clear Calc Estimated GFR Random Glucose (60-115) mg/dL Lactic Acid (0.5-2.0) mmol/L Lactic Acid F/U @ 2Hr (0.5-2.0) mmol/L Lactic Acid F/U @ 4Hr (0.5-2.0) mmol/L Calcium (8.4-10.2) mg/dL Magnesium 1.1 L* (1.6-2.6) mg/dL Total Bilirubin (0.0-1.0) mg/dL Direct Bilirubin (0.0-0.5) mg/dL AST (5-37) U/L ALT (0-40) U/L Alkaline Phosphatase (39-117) U/L Troponin I High Sens 11.4 (<3.5-35.0) ng/L Total Protein (6.5-8.0) g/dL Albumin (3.5-5.0) g/dL Lipase (8-78) U/L Urine Color Urine Appearance Urine pH (5.0-9.0) Ur Specific [place] (1.005-1.025) Urine Protein (Neg-Trace) mg/dL Urine Glucose (UA) (Negative) mg/dL Urine Ketones (Negative) mg/dL Urine Blood (Negative) Urine Nitrite (Negative) Ur Leukocyte Esterase (Negative) CSF Tube Number CSF Volume ML CSF Appearance CSF Color CSF WBC MM*3 CSF RBC MM*3 CSF Lymphocytes % CSF Appearance (b) CSF Glucose mg/dL CSF Total Protein (15-45) mg/dL Ethyl Alcohol mg/dL COVID-19 (GIRMA) (Negative) COVID-19 Clin Com 03/28/22 03/28/22 03/28/22 Range/Units 17:00 19:01 19:22 WBC (4.8-10.8) X10*3/uL RBC (4.60-5.80) X10*6/uL Hgb (14.0-18.0) g/dl Hct (42.0-52.0) % MCV (80.0-98.0) fL MCH (27.0-33.0) pg MCHC (31.0-36.0) g/dl RDW (11.0-16.0) % Plt Count (160-400) X10*3/uL MPV (9.4-12.4) fL Immature Gran % (Auto) (0.0-0.4) % Neut % (Auto) (45-73) % Lymph % (Auto) (20-40) % [place] % (Auto) (2-11) % Eos % (Auto) (0-4) % Baso % (Auto) (0-2) % Lymph # (Auto) (1.2-4.9) X10*3/uL [place] # (Auto) (0.1-1.2) X10*3/uL Eos # (Auto) (0.0-0.4) X10*3/uL Baso # (Auto) (0.0-0.2) X10*3/uL Abs Immat Gran (auto) (0.00-0.03) X10*3/uL Absolute Neuts (auto) (2.0-8.3) x10*3/uL Absolute Nucleated RBC (0.0-0.012) X10*3/uL Nucleated RBC % (auto) (0.0-0.2) /100WBC PT (10.0-13.1) SEC INR (0.9-1.1) Sodium (135-145) mmol/L Potassium (3.3-5.1) mmol/L Chloride (96-108) mmol/L Carbon Dioxide (22-29) mmol/L Anion Gap (12-20) BUN (9-16) mg/dL Creatinine (0.5-1.4) mg/dL Estim Creat Clear Calc Estimated GFR Random Glucose (60-115) mg/dL Lactic Acid 2.1 H* (0.5-2.0) mmol/L Lactic Acid F/U @ 2Hr 2.3 H* (0.5-2.0) mmol/L Lactic Acid F/U @ 4Hr (0.5-2.0) mmol/L Calcium (8.4-10.2) mg/dL Magnesium (1.6-2.6) mg/dL Total Bilirubin (0.0-1.0) mg/dL Direct Bilirubin (0.0-0.5) mg/dL AST (5-37) U/L ALT (0-40) U/L Alkaline Phosphatase (39-117) U/L Troponin I High Sens (<3.5-35.0) ng/L Total Protein (6.5-8.0) g/dL Albumin (3.5-5.0) g/dL Lipase (8-78) U/L Urine Color Yellow Urine Appearance Clear Urine pH 8.5 (5.0-9.0) Ur Specific [place] >= 1.030 H (1.005-1.025) Urine Protein Negative (Neg-Trace) mg/dL Urine Glucose (UA) Negative (Negative) mg/dL Urine Ketones Negative (Negative) mg/dL Urine Blood Negative (Negative) Urine Nitrite Negative (Negative) Ur Leukocyte Esterase Negative (Negative) CSF Tube Number CSF Volume ML CSF Appearance CSF Color CSF WBC MM*3 CSF RBC MM*3 CSF Lymphocytes % CSF Appearance (b) CSF Glucose mg/dL CSF Total Protein (15-45) mg/dL Ethyl Alcohol mg/dL COVID-19 (GIRMA) (Negative) COVID-19 Clin Com 03/28/22 03/28/22 03/29/22 Range/Units 20:16 23:03 01:39 WBC (4.8-10.8) X10*3/uL RBC (4.60-5.80) X10*6/uL Hgb (14.0-18.0) g/dl Hct (42.0-52.0) % MCV (80.0-98.0) fL MCH (27.0-33.0) pg MCHC (31.0-36.0) g/dl RDW (11.0-16.0) % Plt Count (160-400) X10*3/uL MPV (9.4-12.4) fL Immature Gran % (Auto) (0.0-0.4) % Neut % (Auto) (45-73) % Lymph % (Auto) (20-40) % [place] % (Auto) (2-11) % Eos % (Auto) (0-4) % Baso % (Auto) (0-2) % Lymph # (Auto) (1.2-4.9) X10*3/uL [place] # (Auto) (0.1-1.2) X10*3/uL Eos # (Auto) (0.0-0.4) X10*3/uL Baso # (Auto) (0.0-0.2) X10*3/uL Abs Immat Gran (auto) (0.00-0.03) X10*3/uL Absolute Neuts (auto) (2.0-8.3) x10*3/uL Absolute Nucleated RBC (0.0-0.012) X10*3/uL Nucleated RBC % (auto) (0.0-0.2) /100WBC PT (10.0-13.1) SEC INR (0.9-1.1) Sodium 133 L (135-145) mmol/L Potassium 3.5 (3.3-5.1) mmol/L Chloride 94 L (96-108) mmol/L Carbon Dioxide 26 (22-29) mmol/L Anion Gap 17 (12-20) BUN 7 L (9-16) mg/dL Creatinine 0.58 (0.5-1.4) mg/dL Estim Creat Clear Calc 152.0 Estimated GFR > 60 Random Glucose 101 (60-115) mg/dL Lactic Acid (0.5-2.0) mmol/L Lactic Acid F/U @ 2Hr (0.5-2.0) mmol/L Lactic Acid F/U @ 4Hr 1.7 (0.5-2.0) mmol/L Calcium 8.1 L D (8.4-10.2) mg/dL Magnesium 1.8 (1.6-2.6) mg/dL Total Bilirubin 1.4 H (0.0-1.0) mg/dL Direct Bilirubin (0.0-0.5) mg/dL AST 49 H (5-37) U/L ALT 37 (0-40) U/L Alkaline Phosphatase 197 H (39-117) U/L Troponin I High Sens (<3.5-35.0) ng/L Total Protein 5.4 L (6.5-8.0) g/dL Albumin 3.0 L (3.5-5.0) g/dL Lipase (8-78) U/L Urine Color Urine Appearance Urine pH (5.0-9.0) Ur Specific [place] (1.005-1.025) Urine Protein (Neg-Trace) mg/dL Urine Glucose (UA) (Negative) mg/dL Urine Ketones (Negative) mg/dL Urine Blood (Negative) Urine Nitrite (Negative) Ur Leukocyte Esterase (Negative) CSF Tube Number 1 CSF Volume ML CSF Appearance CSF Color CSF WBC MM*3 CSF RBC MM*3 CSF Lymphocytes % CSF Appearance (b) Clear, Colorless CSF Glucose 55 mg/dL CSF Total Protein 56.1 H (15-45) mg/dL Ethyl Alcohol mg/dL COVID-19 (GIRMA) (Negative) COVID-19 Clin Com 03/29/22 Range/Units 01:39 WBC (4.8-10.8) X10*3/uL RBC (4.60-5.80) X10*6/uL Hgb (14.0-18.0) g/dl Hct (42.0-52.0) % MCV (80.0-98.0) fL MCH (27.0-33.0) pg MCHC (31.0-36.0) g/dl RDW (11.0-16.0) % Plt Count (160-400) X10*3/uL MPV (9.4-12.4) fL Immature Gran % (Auto) (0.0-0.4) % Neut % (Auto) (45-73) % Lymph % (Auto) (20-40) % [place] % (Auto) (2-11) % Eos % (Auto) (0-4) % Baso % (Auto) (0-2) % Lymph # (Auto) (1.2-4.9) X10*3/uL [place] # (Auto) (0.1-1.2) X10*3/uL Eos # (Auto) (0.0-0.4) X10*3/uL Baso # (Auto) (0.0-0.2) X10*3/uL Abs Immat Gran (auto) (0.00-0.03) X10*3/uL Absolute Neuts (auto) (2.0-8.3) x10*3/uL Absolute Nucleated RBC (0.0-0.012) X10*3/uL Nucleated RBC % (auto) (0.0-0.2) /100WBC PT (10.0-13.1) SEC INR (0.9-1.1) Sodium (135-145) mmol/L Potassium (3.3-5.1) mmol/L Chloride (96-108) mmol/L Carbon Dioxide (22-29) mmol/L Anion Gap (12-20) BUN (9-16) mg/dL Creatinine (0.5-1.4) mg/dL Estim Creat Clear Calc Estimated GFR Random Glucose (60-115) mg/dL Lactic Acid (0.5-2.0) mmol/L Lactic Acid F/U @ 2Hr (0.5-2.0) mmol/L Lactic Acid F/U @ 4Hr (0.5-2.0) mmol/L Calcium (8.4-10.2) mg/dL Magnesium (1.6-2.6) mg/dL Total Bilirubin (0.0-1.0) mg/dL Direct Bilirubin (0.0-0.5) mg/dL AST (5-37) U/L ALT (0-40) U/L Alkaline Phosphatase (39-117) U/L Troponin I High Sens (<3.5-35.0) ng/L Total Protein (6.5-8.0) g/dL Albumin (3.5-5.0) g/dL Lipase (8-78) U/L Urine Color Urine Appearance Urine pH (5.0-9.0) Ur Specific [place] (1.005-1.025) Urine Protein (Neg-Trace) mg/dL Urine Glucose (UA) (Negative) mg/dL Urine Ketones (Negative) mg/dL Urine Blood (Negative) Urine Nitrite (Negative) Ur Leukocyte Esterase (Negative) CSF Tube Number 4 CSF Volume 1.3 ML CSF Appearance CLEAR CSF Color COLORLESS CSF WBC 1 MM*3 CSF RBC 0 MM*3 CSF Lymphocytes 100 % CSF Appearance (b) CSF Glucose mg/dL CSF Total Protein (15-45) mg/dL Ethyl Alcohol mg/dL COVID-19 (GIRMA) (Negative) COVID-19 Clin Com <Ladonna Benz NP - Last Filed: 03/29/22 02:59> Lab Results 03/28/22 03/28/22 03/28/22 Range/Units 15:20 15:20 15:23 WBC 16.6 H (4.8-10.8) X10*3/uL RBC 4.56 L (4.60-5.80) X10*6/uL Hgb 16.2 (14.0-18.0) g/dl Hct 44.7 (42.0-52.0) % MCV 98.0 (80.0-98.0) fL MCH 35.5 H (27.0-33.0) pg MCHC 36.2 H (31.0-36.0) g/dl RDW 15.9 (11.0-16.0) % Plt Count 129 L (160-400) X10*3/uL MPV 9.6 (9.4-12.4) fL Immature Gran % (Auto) 0.6 H (0.0-0.4) % Neut % (Auto) 82.4 H (45-73) % Lymph % (Auto) 9.4 L (20-40) % [place] % (Auto) 6.8 (2-11) % Eos % (Auto) 0.5 (0-4) % Baso % (Auto) 0.3 (0-2) % Lymph # (Auto) 1.6 (1.2-4.9) X10*3/uL [place] # (Auto) 1.1 (0.1-1.2) X10*3/uL Eos # (Auto) 0.1 (0.0-0.4) X10*3/uL Baso # (Auto) 0.1 (0.0-0.2) X10*3/uL Abs Immat Gran (auto) 0.10 H (0.00-0.03) X10*3/uL Absolute Neuts (auto) 13.6 H (2.0-8.3) x10*3/uL Absolute Nucleated RBC 0.020 H (0.0-0.012) X10*3/uL Nucleated RBC % (auto) 0.1 (0.0-0.2) /100WBC PT (10.0-13.1) SEC INR (0.9-1.1) Sodium 134 L (135-145) mmol/L Potassium 3.0 L (3.3-5.1) mmol/L Chloride 89 L (96-108) mmol/L Carbon Dioxide 28 (22-29) mmol/L Anion Gap 20 (12-20) BUN 8 L (9-16) mg/dL Creatinine 0.68 (0.5-1.4) mg/dL Estim Creat Clear Calc 129.7 Estimated GFR > 60 Random Glucose 113 (60-115) mg/dL Lactic Acid (0.5-2.0) mmol/L Lactic Acid F/U @ 2Hr (0.5-2.0) mmol/L Lactic Acid F/U @ 4Hr (0.5-2.0) mmol/L Calcium 9.4 (8.4-10.2) mg/dL Magnesium (1.6-2.6) mg/dL Total Bilirubin 1.4 H (0.0-1.0) mg/dL Direct Bilirubin 0.7 H (0.0-0.5) mg/dL AST 56 H (5-37) U/L ALT 45 H (0-40) U/L Alkaline Phosphatase 224 H D (39-117) U/L Troponin I High Sens (<3.5-35.0) ng/L Total Protein 6.4 L (6.5-8.0) g/dL Albumin 3.5 (3.5-5.0) g/dL Lipase 101 H (8-78) U/L Urine Color Urine Appearance Urine pH (5.0-9.0) Ur Specific [place] (1.005-1.025) Urine Protein (Neg-Trace) mg/dL Urine Glucose (UA) (Negative) mg/dL Urine Ketones (Negative) mg/dL Urine Blood (Negative) Urine Nitrite (Negative) Ur Leukocyte Esterase (Negative) CSF Tube Number CSF Volume ML CSF Appearance CSF Color CSF WBC MM*3 CSF RBC MM*3 CSF Lymphocytes % CSF Appearance (b) CSF Glucose mg/dL CSF Total Protein (15-45) mg/dL Ethyl Alcohol < 10 mg/dL COVID-19 (GIRMA) Negative (Negative) COVID-19 Clin Com See Note 03/28/22 03/28/22 03/28/22 Range/Units 15:24 15:39 15:39 WBC (4.8-10.8) X10*3/uL RBC (4.60-5.80) X10*6/uL Hgb (14.0-18.0) g/dl Hct (42.0-52.0) % MCV (80.0-98.0) fL MCH (27.0-33.0) pg MCHC (31.0-36.0) g/dl RDW (11.0-16.0) % Plt Count (160-400) X10*3/uL MPV (9.4-12.4) fL Immature Gran % (Auto) (0.0-0.4) % Neut % (Auto) (45-73) % Lymph % (Auto) (20-40) % [place] % (Auto) (2-11) % Eos % (Auto) (0-4) % Baso % (Auto) (0-2) % Lymph # (Auto) (1.2-4.9) X10*3/uL [place] # (Auto) (0.1-1.2) X10*3/uL Eos # (Auto) (0.0-0.4) X10*3/uL Baso # (Auto) (0.0-0.2) X10*3/uL Abs Immat Gran (auto) (0.00-0.03) X10*3/uL Absolute Neuts (auto) (2.0-8.3) x10*3/uL Absolute Nucleated RBC (0.0-0.012) X10*3/uL Nucleated RBC % (auto) (0.0-0.2) /100WBC PT 11.5 (10.0-13.1) SEC INR 1.0 (0.9-1.1) Sodium (135-145) mmol/L Potassium (3.3-5.1) mmol/L Chloride (96-108) mmol/L Carbon Dioxide (22-29) mmol/L Anion Gap (12-20) BUN (9-16) mg/dL Creatinine (0.5-1.4) mg/dL Estim Creat Clear Calc Estimated GFR Random Glucose (60-115) mg/dL Lactic Acid (0.5-2.0) mmol/L Lactic Acid F/U @ 2Hr (0.5-2.0) mmol/L Lactic Acid F/U @ 4Hr (0.5-2.0) mmol/L Calcium (8.4-10.2) mg/dL Magnesium 1.1 L* (1.6-2.6) mg/dL Total Bilirubin (0.0-1.0) mg/dL Direct Bilirubin (0.0-0.5) mg/dL AST (5-37) U/L ALT (0-40) U/L Alkaline Phosphatase (39-117) U/L Troponin I High Sens 11.4 (<3.5-35.0) ng/L Total Protein (6.5-8.0) g/dL Albumin (3.5-5.0) g/dL Lipase (8-78) U/L Urine Color Urine Appearance Urine pH (5.0-9.0) Ur Specific [place] (1.005-1.025) Urine Protein (Neg-Trace) mg/dL Urine Glucose (UA) (Negative) mg/dL Urine Ketones (Negative) mg/dL Urine Blood (Negative) Urine Nitrite (Negative) Ur Leukocyte Esterase (Negative) CSF Tube Number CSF Volume ML CSF Appearance CSF Color CSF WBC MM*3 CSF RBC MM*3 CSF Lymphocytes % CSF Appearance (b) CSF Glucose mg/dL CSF Total Protein (15-45) mg/dL Ethyl Alcohol mg/dL COVID-19 (GIRMA) (Negative) COVID-19 Clin Com 03/28/22 03/28/22 03/28/22 Range/Units 17:00 19:01 19:22 WBC (4.8-10.8) X10*3/uL RBC (4.60-5.80) X10*6/uL Hgb (14.0-18.0) g/dl Hct (42.0-52.0) % MCV (80.0-98.0) fL MCH (27.0-33.0) pg MCHC (31.0-36.0) g/dl RDW (11.0-16.0) % Plt Count (160-400) X10*3/uL MPV (9.4-12.4) fL Immature Gran % (Auto) (0.0-0.4) % Neut % (Auto) (45-73) % Lymph % (Auto) (20-40) % [place] % (Auto) (2-11) % Eos % (Auto) (0-4) % Baso % (Auto) (0-2) % Lymph # (Auto) (1.2-4.9) X10*3/uL [place] # (Auto) (0.1-1.2) X10*3/uL Eos # (Auto) (0.0-0.4) X10*3/uL Baso # (Auto) (0.0-0.2) X10*3/uL Abs Immat Gran (auto) (0.00-0.03) X10*3/uL Absolute Neuts (auto) (2.0-8.3) x10*3/uL Absolute Nucleated RBC (0.0-0.012) X10*3/uL Nucleated RBC % (auto) (0.0-0.2) /100WBC PT (10.0-13.1) SEC INR (0.9-1.1) Sodium (135-145) mmol/L Potassium (3.3-5.1) mmol/L Chloride (96-108) mmol/L Carbon Dioxide (22-29) mmol/L Anion Gap (12-20) BUN (9-16) mg/dL Creatinine (0.5-1.4) mg/dL Estim Creat Clear Calc Estimated GFR Random Glucose (60-115) mg/dL Lactic Acid 2.1 H* (0.5-2.0) mmol/L Lactic Acid F/U @ 2Hr 2.3 H* (0.5-2.0) mmol/L Lactic Acid F/U @ 4Hr (0.5-2.0) mmol/L Calcium (8.4-10.2) mg/dL Magnesium (1.6-2.6) mg/dL Total Bilirubin (0.0-1.0) mg/dL Direct Bilirubin (0.0-0.5) mg/dL AST (5-37) U/L ALT (0-40) U/L Alkaline Phosphatase (39-117) U/L Troponin I High Sens (<3.5-35.0) ng/L Total Protein (6.5-8.0) g/dL Albumin (3.5-5.0) g/dL Lipase (8-78) U/L Urine Color Yellow Urine Appearance Clear Urine pH 8.5 (5.0-9.0) Ur Specific [place] >= 1.030 H (1.005-1.025) Urine Protein Negative (Neg-Trace) mg/dL Urine Glucose (UA) Negative (Negative) mg/dL Urine Ketones Negative (Negative) mg/dL Urine Blood Negative (Negative) Urine Nitrite Negative (Negative) Ur Leukocyte Esterase Negative (Negative) CSF Tube Number CSF Volume ML CSF Appearance CSF Color CSF WBC MM*3 CSF RBC MM*3 CSF Lymphocytes % CSF Appearance (b) CSF Glucose mg/dL CSF Total Protein (15-45) mg/dL Ethyl Alcohol mg/dL COVID-19 (GIRMA) (Negative) COVID-19 Clin Com 03/28/22 03/28/22 03/29/22 Range/Units 20:16 23:03 01:39 WBC (4.8-10.8) X10*3/uL RBC (4.60-5.80) X10*6/uL Hgb (14.0-18.0) g/dl Hct (42.0-52.0) % MCV (80.0-98.0) fL MCH (27.0-33.0) pg MCHC (31.0-36.0) g/dl RDW (11.0-16.0) % Plt Count (160-400) X10*3/uL MPV (9.4-12.4) fL Immature Gran % (Auto) (0.0-0.4) % Neut % (Auto) (45-73) % Lymph % (Auto) (20-40) % [place] % (Auto) (2-11) % Eos % (Auto) (0-4) % Baso % (Auto) (0-2) % Lymph # (Auto) (1.2-4.9) X10*3/uL [place] # (Auto) (0.1-1.2) X10*3/uL Eos # (Auto) (0.0-0.4) X10*3/uL Baso # (Auto) (0.0-0.2) X10*3/uL Abs Immat Gran (auto) (0.00-0.03) X10*3/uL Absolute Neuts (auto) (2.0-8.3) x10*3/uL Absolute Nucleated RBC (0.0-0.012) X10*3/uL Nucleated RBC % (auto) (0.0-0.2) /100WBC PT (10.0-13.1) SEC INR (0.9-1.1) Sodium 133 L (135-145) mmol/L Potassium 3.5 (3.3-5.1) mmol/L Chloride 94 L (96-108) mmol/L Carbon Dioxide 26 (22-29) mmol/L Anion Gap 17 (12-20) BUN 7 L (9-16) mg/dL Creatinine 0.58 (0.5-1.4) mg/dL Estim Creat Clear Calc 152.0 Estimated GFR > 60 Random Glucose 101 (60-115) mg/dL Lactic Acid (0.5-2.0) mmol/L Lactic Acid F/U @ 2Hr (0.5-2.0) mmol/L Lactic Acid F/U @ 4Hr 1.7 (0.5-2.0) mmol/L Calcium 8.1 L D (8.4-10.2) mg/dL Magnesium 1.8 (1.6-2.6) mg/dL Total Bilirubin 1.4 H (0.0-1.0) mg/dL Direct Bilirubin (0.0-0.5) mg/dL AST 49 H (5-37) U/L ALT 37 (0-40) U/L Alkaline Phosphatase 197 H (39-117) U/L Troponin I High Sens (<3.5-35.0) ng/L Total Protein 5.4 L (6.5-8.0) g/dL Albumin 3.0 L (3.5-5.0) g/dL Lipase (8-78) U/L Urine Color Urine Appearance Urine pH (5.0-9.0) Ur Specific [place] (1.005-1.025) Urine Protein (Neg-Trace) mg/dL Urine Glucose (UA) (Negative) mg/dL Urine Ketones (Negative) mg/dL Urine Blood (Negative) Urine Nitrite (Negative) Ur Leukocyte Esterase (Negative) CSF Tube Number 1 CSF Volume ML CSF Appearance CSF Color CSF WBC MM*3 CSF RBC MM*3 CSF Lymphocytes % CSF Appearance (b) Clear, Colorless CSF Glucose 55 mg/dL CSF Total Protein 56.1 H (15-45) mg/dL Ethyl Alcohol mg/dL COVID-19 (GIRMA) (Negative) COVID-19 Clin Com 03/29/22 Range/Units 01:39 WBC (4.8-10.8) X10*3/uL RBC (4.60-5.80) X10*6/uL Hgb (14.0-18.0) g/dl Hct (42.0-52.0) % MCV (80.0-98.0) fL MCH (27.0-33.0) pg MCHC (31.0-36.0) g/dl RDW (11.0-16.0) % Plt Count (160-400) X10*3/uL MPV (9.4-12.4) fL Immature Gran % (Auto) (0.0-0.4) % Neut % (Auto) (45-73) % Lymph % (Auto) (20-40) % [place] % (Auto) (2-11) % Eos % (Auto) (0-4) % Baso % (Auto) (0-2) % Lymph # (Auto) (1.2-4.9) X10*3/uL [place] # (Auto) (0.1-1.2) X10*3/uL Eos # (Auto) (0.0-0.4) X10*3/uL Baso # (Auto) (0.0-0.2) X10*3/uL Abs Immat Gran (auto) (0.00-0.03) X10*3/uL Absolute Neuts (auto) (2.0-8.3) x10*3/uL Absolute Nucleated RBC (0.0-0.012) X10*3/uL Nucleated RBC % (auto) (0.0-0.2) /100WBC PT (10.0-13.1) SEC INR (0.9-1.1) Sodium (135-145) mmol/L Potassium (3.3-5.1) mmol/L Chloride (96-108) mmol/L Carbon Dioxide (22-29) mmol/L Anion Gap (12-20) BUN (9-16) mg/dL Creatinine (0.5-1.4) mg/dL Estim Creat Clear Calc Estimated GFR Random Glucose (60-115) mg/dL Lactic Acid (0.5-2.0) mmol/L Lactic Acid F/U @ 2Hr (0.5-2.0) mmol/L Lactic Acid F/U @ 4Hr (0.5-2.0) mmol/L Calcium (8.4-10.2) mg/dL Magnesium (1.6-2.6) mg/dL Total Bilirubin (0.0-1.0) mg/dL Direct Bilirubin (0.0-0.5) mg/dL AST (5-37) U/L ALT (0-40) U/L Alkaline Phosphatase (39-117) U/L Troponin I High Sens (<3.5-35.0) ng/L Total Protein (6.5-8.0) g/dL Albumin (3.5-5.0) g/dL Lipase (8-78) U/L Urine Color Urine Appearance Urine pH (5.0-9.0) Ur Specific [place] (1.005-1.025) Urine Protein (Neg-Trace) mg/dL Urine Glucose (UA) (Negative) mg/dL Urine Ketones (Negative) mg/dL Urine Blood (Negative) Urine Nitrite (Negative) Ur Leukocyte Esterase (Negative) CSF Tube Number 4 CSF Volume 1.3 ML CSF Appearance CLEAR CSF Color COLORLESS CSF WBC 1 MM*3 CSF RBC 0 MM*3 CSF Lymphocytes 100 % CSF Appearance (b) CSF Glucose mg/dL CSF Total Protein (15-45) mg/dL Ethyl Alcohol mg/dL COVID-19 (GIRMA) (Negative) COVID-19 Clin Com <April Millan MD - Last Filed: 03/29/22 00:02> Imaging Data Chest x-ray: Radiologist's impression: XR/XR chest 2V IMPRESSION: Normal chest x-ray. <Lacie Max CNP - Last Filed: 03/28/22 21:50> CT scan - abdomen: Radiologist's impression: CT/CT abdomen pelvis w IV con IMPRESSION: *Mild circumferential wall thickening of the terminal ileum at the TI junction, although nonspecific and could be peristalsis, cannot rule out the possibility of IBD/Crohn's, no evidence of obstruction or complication. Please correlate with patient's clinical history, may consider GI consultation. ? *No CT evidence of intra-abdominal mass or lymphadenopathy. ? *Mildly hypodense liver suggesting steatosis. <Lacie Max CNP - Last Filed: 03/28/22 21:50> Discharge Plan Discharge Patient Disposition: Admitted As Inpatient <Lacie Max CNP - Last Filed: 03/28/22 21:50> Additional Instructions: Please be sure to stay well hydrated, encourage herself to have small frequent meals throughout the day. You should consider refraining or decreasing your alcohol consumption. As we discussed, based on the CT scan of your abdomen it is possible that you may have an inflammatory bowel condition, given your abdominal pain as well as poor appetite and weight loss you need to follow-up with the gastroenterology office. You have been given the contact information, please contact their office to arrange for further follow-up. Return to the emergency department with any new or worsening symptoms or concerns. <Lacie Max CNP - Last Filed: 03/28/22 21:50>
[2022-03-28] MEDS: Potassium Chloride Packet 20 MEQ PACKET 40 MEQ PO (17:13)
[2022-03-28] MEDS: Potassium Chloride/H20 10 MEQ/100 ML PIGGYBACK 100 MEQ IV ×2 (17:13→18:33)
[2022-03-28] MEDS: 0.9 % Sodium Chloride 1,000 ML 999 ML IV (17:13)
[2022-03-28] MEDS: Magnesium Oxide 400 MG TABLET PO (17:13)
[2022-03-28 17:21] LABS: Lactic Acid 2.1 mmol/L (0.5-2.0)
[2022-03-28 17:53] VITALS: BP 110/73; PULSE 113; RESP 16; TEMP 36.6; O2SAT 97
[2022-03-28] MEDS: iohexoL 350 MG/ML 100 ML INFUS..BTL IV (18:25)
[2022-03-28 18:39] VITALS: BP 112/79; PULSE 108; RESP 20; TEMP 36.4; O2SAT 100
[2022-03-28 19:03] LABS: Reflex Lactate? Lactic Acid Added
[2022-03-28 19:13] LABS: Appearance Urine Clear; Color Urine Yellow; Glucose Urine UA Negative (Negative); Leukocyte Esterase Urine Negative (Negative); Nitrite Urine Negative (Negative); PH 8.5 (5.0-9.0); Specific Gravity - Urine >= 1.030 (1.005-1.025); Urine Blood Negative (Negative); Urine Ketones Negative (Negative); Urine Protein Negative (Neg-Trace)
[2022-03-28 19:45] LABS: ~Lactic Acid-LAB USE ONLY 2.3 mmol/L (0.5-2.0)
--- NOTE | 2022-03-28 20:02 | PC.NURSE ---
Gave pt douglas crackers and water PO. Pt stated he is burping them up but no nausea/vomiting or abdominal pain.
[2022-03-28 20:44] LABS: Alanine Aminotransferase 37 U/L (0-40); Alkaline Phosphatase 197 U/L (39-117); Anion Gap 17 (12-20); Aspartate Amino Transferase 49 U/L (5-37); Bilirubin Total 1.4 mg/dL (0.0-1.0); Blood Urea Nitrogen 7 mg/dL (9-16); Calcium 8.1 mg/dL (8.4-10.2); Carbon Dioxide 26 mmol/L (22-29); Chloride 94 mmol/L (96-108); Estimated Glomerular Filt Rate > 60; Glucose Random 101 mg/dL (60-115); Magnesium 1.8 mg/dL (1.6-2.6); Potassium 3.5 mmol/L (3.3-5.1); Sodium 133 mmol/L (135-145); Total Protein 5.4 g/dL (6.5-8.0)
[2022-03-28 21:25] LABS: Reflex Lactate? 2 Y
--- NOTE | 2022-03-28 21:46 | PC.NURSE ---
Pt helped into a wheelchair for discharge. Upon getting him up he buckled at the knees due to weakness. No fall occurred at this time though it is apparent that the patient does not have strength enough to ambulate. [facility] was notified of this. Discharge on hold at this time.
--- NOTE | 2022-03-28 22:39 | MHC.CM.ED ---
Received CM consult from Lacie COLIN. Pt tells CM he is unable to walk, very weak and legs feel numb. 2 friends carried him to the car and states security helped her to get him out of the car. Pt has been medically cleared and PT has been ordered. Pt lives with . Admits to alcohol use disorder. Recently lost his job. His insurance will soon. is adding him to her insurance. Given financial services pamphlet. Contact card given. No DME or services. Pt is not homebound, so not eligible for home PT. Pt cannot get to Outpatient PT, as he cannot walk. Pt would like acute rehab referral. Referrals made. Pt understands that PT will see him in the morning and make recommendations. Pt is not vaccinated against Covid 19 and he is aware that this can be a barrier for rehab acceptance. Pt admits that his drinking alcohol is a problem. Pt states he spends a lot of time outdoors. Has had recent 20 lb weight loss. ? Lyme. [employer] aware of pt and concerns. No HCP. Reviewed, completed and signed. Copies given. Uploaded into [facility] and [facility]. HCP/ Kathy Newberry ([phone]). CM will follow for discharge planning.
[2022-03-28] MEDS: Nicotine 21 MG PATCH.TD24 TRANSDERMA (23:16)
[2022-03-28 23:25] LABS: ~Lactic Acid-LAB USE ONLY 1.7 mmol/L (0.5-2.0)
[2022-03-29] VITALS (11 sets, daily range): BP systolic 104–158; BP diastolic 63–93; PULSE 95–108; RESP 12–18; TEMP 36–37.1; O2SAT 96–100
[2022-03-29] MEDS: Magnesium Hydrox/Alum Hydrox 30 ML ORAL.SUSP PO (01:57)
[2022-03-29 02:12] LABS: CSF Appearance Clear, Colorless; CSF Tube # 1
[2022-03-29 02:23] LABS: Glucose CSF 55 mg/dL; Total Protein CSF 56.1 mg/dL (15-45)
[2022-03-29 02:56] LABS: Appearance CSF CLEAR; CSF Tube # 4; CSF Volume 1.3 ML; Color CSF COLORLESS; Red Blood Cell CSF 0 MM*3; White Blood Cell CSF 1 MM*3
[2022-03-29 02:57] LABS: Lymphocytes CSF 100 %
--- NOTE | 2022-03-29 04:20 | PC.NURSE ---
Report called to overflow, given to Evie HERNÁNDEZ. Pt transported by [employer]. Will be going to Bed 8 in overflow.
[2022-03-29] MEDS: Enoxaparin Sodium 40 MG/0.4 ML SYRINGE SUBCUT (05:51)
--- NOTE | 2022-03-29 06:16 | P.HPHOSP_ITS ---
History of Present Illness Date of Service: 03/29/22 Chief Complaint: leg weakness 42-year-old male with past medical history of alcohol abuse, chronic anemia, dermatitis, presents the hospital with complaints of bilateral leg weakness, numbness and tingling. He has also had difficulty ambulating as a result of his weakness in the leg. Patient reports that he has also been feeling numbness and tingling in his hands. This started happening around 4 days ago. Progressively worsening. Denies any difficulty swallowing, no shortness of breath or difficulty with breathing. he is complaining of constipation, decreased appetite, nausea with no vomiting. In diffuse abdominal pain. He does report that he was treated for dermatitis of his feet bilaterally recently with improvement. He reports no infection at this time. He denies any recent travel or sick contacts. Denies any fever or chills. all other review of systems negative at this time. He does report that he drinks every day last drink was the night prior to presentation. Denies any history of withdrawals. On arrival to the ED patient vitals are significant for heart rate of 106 vitals otherwise WBC count of 16.6, sodium of 134, chloride of 89, lactic acid of 2.1, magnesium of 1.1, total bili of 1.4, AST of 56, ALT of 45, alk-phos of 224, lipase of 101, UA negative, COVID-19 negative, alcohol less than 10, LP was done which showed significantly elevated protein levels, patient will be admitted for further management Review of Systems Review of Systems: Yes all other systems are reviewed and are negative PMFSH Medical History Dermatitis ETOH abuse Family History Father Heart disease Surgical History No pertinent past surgical history Social History Housing: Apartment Alcohol intake: current Alcohol type: hard liquor Patient Tobacco Use Status: Current everyday Tobacco user Tobacco use type: Cigarette Cigarettes Per Day: 10 e-Cigarette/Vaping Use: Never Used Second Hand Smoke Exposure: Yes Use of substances other than those prescribed or required for medical reasons: No Advance Directives: No Advance Directives Information Provided: No service: No Current occupational status: employed Current occupation: [employer] Current occupational exposures/hazards: No Meds Allergies Allergy/AdvReac Type Severity Reaction Status Date / Time No Known Allergies Allergy Verified 03/13/22 08:19 Active Medications: Current Medications Acetaminophen (Acetaminophen 325 Mg Tablet) 650 mg PO Q6H PRN PRN Reason: Pain, Mild (Pain Scale 1-3) Docusate Sodium (Docusate Sodium 100 Mg Capsule) 100 mg PO DAILY PRN PRN Reason: Constipation Enoxaparin Sodium (Enoxaparin Sodium 40 Mg/0.4 Ml Syringe) 40 mg SUBCUT Q24H [facility] Last Admin: 03/29/22 05:51 Dose: 40 mg Ondansetron HCl (Ondansetron Hcl 4 Mg/2 Ml Vial) 4 mg IVPUSH Q8H PRN PRN Reason: Nausea and Vomiting Pharmacy Consult (Consult Rx Other Drug Dosing) 1 each MISCELLANE DAILY ST[facility] Stop: 03/29/22 03:38 Sodium Chloride (0.9 % Sodium Chloride Flush 3 Ml Syringe) 3 ml IVFLUSH QSHIFT [facility] Physical Exam Vital Signs and Narrative: Vital Signs: Last Vital Signs Temp 97.1 F 03/29/22 04:55 Pulse 108 H 03/29/22 04:55 Resp 14 03/29/22 04:55 BP 111/75 03/29/22 04:55 Pulse Ox 98 03/29/22 04:55 O2 Del Method 03/29/22 04:55 BMI result Body Mass Index 19.0 Const: General: cooperative and no acute distress Orientation/consciousness: patient oriented x3 Eyes: General: appearance normal, both eyes and all related structures Resp: Effort & Inspection: normal respiratory effort Cardio: Rate: regular rate Rhythm: regular rhythm GI: Palpation (GI): Soft to palpation Auscultation: normal bowel sounds Skin: Other: Has discoloration along the lateral aspect of both feet, as well as open lesions that do not appear infected, Neuro: Other: patient has diminished reflexes bilaterally in the lower extremities General: patient oriented x3 Cognition (Neuro): normal cognition Extrem: General: Yes normal to inspection and Yes no pedal edema Results Labs CBC and Chem 7: 03/28/22 15:20 03/28/22 20:16 Labs: Laboratory Results - last 24 hr 03/28/22 03/28/22 03/28/22 15:20 15:20 15:23 MCV 98.0 MCH 35.5 H MCHC 36.2 H RDW 15.9 Plt Count 129 L MPV 9.6 Immature Gran % (Auto) 0.6 H Neut % (Auto) 82.4 H Lymph % (Auto) 9.4 L [place] % (Auto) 6.8 Eos % (Auto) 0.5 Baso % (Auto) 0.3 Lymph # (Auto) 1.6 [place] # (Auto) 1.1 Eos # (Auto) 0.1 Baso # (Auto) 0.1 Abs Immat Gran (auto) 0.10 H Absolute Neuts (auto) 13.6 H Absolute Nucleated RBC 0.020 H Nucleated RBC % (auto) 0.1 PT INR Anion Gap 20 Estim Creat Clear Calc 129.7 Estimated GFR > 60 Random Glucose 113 Lactic Acid Lactic Acid F/U @ 2Hr Lactic Acid F/U @ 4Hr Calcium 9.4 Magnesium Total Bilirubin 1.4 H Direct Bilirubin 0.7 H AST 56 H ALT 45 H Alkaline Phosphatase 224 H D Troponin I High Sens Total Protein 6.4 L Albumin 3.5 Lipase 101 H Urine Color Urine Appearance Urine pH Ur Specific [place] Urine Protein Urine Glucose (UA) Urine Ketones Urine Blood Urine Nitrite Ur Leukocyte Esterase CSF Tube Number CSF Volume CSF Appearance CSF Color CSF WBC CSF RBC CSF Lymphocytes CSF Appearance (b) CSF Glucose CSF Total Protein Ethyl Alcohol < 10 COVID-19 ([facility]) Negative COVID-19 Clin Com See Note 03/28/22 03/28/22 03/28/22 15:24 15:39 15:39 MCV MCH MCHC RDW Plt Count MPV Immature Gran % (Auto) Neut % (Auto) Lymph % (Auto) [place] % (Auto) Eos % (Auto) Baso % (Auto) Lymph # (Auto) [place] # (Auto) Eos # (Auto) Baso # (Auto) Abs Immat Gran (auto) Absolute Neuts (auto) Absolute Nucleated RBC Nucleated RBC % (auto) PT 11.5 INR 1.0 Anion Gap Estim Creat Clear Calc Estimated GFR Random Glucose Lactic Acid Lactic Acid F/U @ 2Hr Lactic Acid F/U @ 4Hr Calcium Magnesium 1.1 L* Total Bilirubin Direct Bilirubin AST ALT Alkaline Phosphatase Troponin I High Sens 11.4 Total Protein Albumin Lipase Urine Color Urine Appearance Urine pH Ur Specific [place] Urine Protein Urine Glucose (UA) Urine Ketones Urine Blood Urine Nitrite Ur Leukocyte Esterase CSF Tube Number CSF Volume CSF Appearance CSF Color CSF WBC CSF RBC CSF Lymphocytes CSF Appearance (b) CSF Glucose CSF Total Protein Ethyl Alcohol COVID-19 ([facility]) COVID-19 Clin Com 03/28/22 03/28/22 03/28/22 17:00 19:01 19:22 MCV MCH MCHC RDW Plt Count MPV Immature Gran % (Auto) Neut % (Auto) Lymph % (Auto) [place] % (Auto) Eos % (Auto) Baso % (Auto) Lymph # (Auto) [place] # (Auto) Eos # (Auto) Baso # (Auto) Abs Immat Gran (auto) Absolute Neuts (auto) Absolute Nucleated RBC Nucleated RBC % (auto) PT INR Anion Gap Estim Creat Clear Calc Estimated GFR Random Glucose Lactic Acid 2.1 H* Lactic Acid F/U @ 2Hr 2.3 H* Lactic Acid F/U @ 4Hr Calcium Magnesium Total Bilirubin Direct Bilirubin AST ALT Alkaline Phosphatase Troponin I High Sens Total Protein Albumin Lipase Urine Color Yellow Urine Appearance Clear Urine pH 8.5 Ur Specific [place] >= 1.030 H Urine Protein Negative Urine Glucose (UA) Negative Urine Ketones Negative Urine Blood Negative Urine Nitrite Negative Ur Leukocyte Esterase Negative CSF Tube Number CSF Volume CSF Appearance CSF Color CSF WBC CSF RBC CSF Lymphocytes CSF Appearance (b) CSF Glucose CSF Total Protein Ethyl Alcohol COVID-19 ([facility]) COVID-19 Clin Com 03/28/22 03/28/22 03/29/22 20:16 23:03 01:39 MCV MCH MCHC RDW Plt Count MPV Immature Gran % (Auto) Neut % (Auto) Lymph % (Auto) [place] % (Auto) Eos % (Auto) Baso % (Auto) Lymph # (Auto) [place] # (Auto) Eos # (Auto) Baso # (Auto) Abs Immat Gran (auto) Absolute Neuts (auto) Absolute Nucleated RBC Nucleated RBC % (auto) PT INR Anion Gap 17 Estim Creat Clear Calc 152.0 Estimated GFR > 60 Random Glucose 101 Lactic Acid Lactic Acid F/U @ 2Hr Lactic Acid F/U @ 4Hr 1.7 Calcium 8.1 L D Magnesium 1.8 Total Bilirubin 1.4 H Direct Bilirubin AST 49 H ALT 37 Alkaline Phosphatase 197 H Troponin I High Sens Total Protein 5.4 L Albumin 3.0 L Lipase Urine Color Urine Appearance Urine pH Ur Specific [place] Urine Protein Urine Glucose (UA) Urine Ketones Urine Blood Urine Nitrite Ur Leukocyte Esterase CSF Tube Number 1 CSF Volume CSF Appearance CSF Color CSF WBC CSF RBC CSF Lymphocytes CSF Appearance (b) Clear, Colorless CSF Glucose 55 CSF Total Protein 56.1 H Ethyl Alcohol COVID-19 ([facility]) COVID-19 Clin Com 03/29/22 01:39 MCV MCH MCHC RDW Plt Count MPV Immature Gran % (Auto) Neut % (Auto) Lymph % (Auto) [place] % (Auto) Eos % (Auto) Baso % (Auto) Lymph # (Auto) [place] # (Auto) Eos # (Auto) Baso # (Auto) Abs Immat Gran (auto) Absolute Neuts (auto) Absolute Nucleated RBC Nucleated RBC % (auto) PT INR Anion Gap Estim Creat Clear Calc Estimated GFR Random Glucose Lactic Acid Lactic Acid F/U @ 2Hr Lactic Acid F/U @ 4Hr Calcium Magnesium Total Bilirubin Direct Bilirubin AST ALT Alkaline Phosphatase Troponin I High Sens Total Protein Albumin Lipase Urine Color Urine Appearance Urine pH Ur Specific [place] Urine Protein Urine Glucose (UA) Urine Ketones Urine Blood Urine Nitrite Ur Leukocyte Esterase CSF Tube Number 4 CSF Volume 1.3 CSF Appearance CLEAR CSF Color COLORLESS CSF WBC 1 CSF RBC 0 CSF Lymphocytes 100 CSF Appearance (b) CSF Glucose CSF Total Protein Ethyl Alcohol COVID-19 ([facility]) COVID-19 Clin Com Imaging Radiologist's Impressions: Impressions Chest X-Ray 03/28/22 18:10 IMPRESSION: Normal chest x-ray. Abdomen/Pelvis CT 03/28/22 18:25 IMPRESSION: *Mild circumferential wall thickening of the terminal ileum at the TI junction, although nonspecific and could be peristalsis, cannot rule out the possibility of IBD/Crohn's, no evidence of obstruction or complication. Please correlate with patient's clinical history, may consider GI consultation. *No CT evidence of intra-abdominal mass or lymphadenopathy. *Mildly hypodense liver suggesting steatosis. 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 # lower extremity weakness numbness and tingling - concerning for GBS - LP shows evidence of elevated protein - no recent gastroenteritis but was recently treated with p.o. antibiotics for dermatitis - at this time will treat with IVIG - will consult neurology - will hold off on MRI pending neurology evaluation # GBS - diminished deep tendon reflexes in the lower extremities - elevated protein and LP - at this time has no evidence of respiratory failure/difficulty - started on IVIG, - nausea consulted - RT to obtain FVC,NIP b.i.d. - monitor respiratory status # alcohol abuse - not in withdrawal at this time - will place on CIWA - thiamine and folic acid supplement # dermatitis - stable DVT prophylaxis: Lovenox Pt will require a minimum 2 night hospital stay for IVIG Quality Stroke Does the patient have a stroke diagnosis?: No VTE Prior VTE?: No VTE Risk Level:: Medical - moderate - high VTE Device Contraindication: Treatment Not Indicated VTE Drug Contraindication: N/A - Med Ordered
[2022-03-29 06:41] LABS: MANUAL DIFF FLAG NO
[2022-03-29 06:51] LABS: Basophils Absolute Auto 0.1 X10*3/uL (0.0-0.2); Basophils Percent Auto 0.5 % (0-2); Eosinophils Absolute Auto 0.1 X10*3/uL (0.0-0.4); Eosinophils Percent Auto 0.8 % (0-4); Hematocrit 38.2 % (42.0-52.0); Hemoglobin 13.9 g/dl (14.0-18.0); Imm Gran Abs Auto 0.08 X10*3/uL (0.00-0.03); Imm Gran Pct Auto 0.7 % (0.0-0.4); Lymphocytes Absolute Auto 1.6 X10*3/uL (1.2-4.9); Lymphocytes Percent Auto 12.9 % (20-40); Mean Corpuscular HGB Conc 36.4 g/dl (31.0-36.0); Mean Corpuscular Hemoglobin 35.6 pg (27.0-33.0); Mean Corpuscular Volume 97.9 fL (80.0-98.0); Mean Platelet Volume 9.6 fL (9.4-12.4); Monocytes Percent Auto 8.3 % (2-11); NRBC Pct Auto 0.2 /100WBC (0.0-0.2); Neutrophils Absolute Auto 9.3 x10*3/uL (2.0-8.3); Neutrophils Percent Auto 76.8 % (45-73); Platelet Count 103 X10*3/uL (160-400); Red Cell Distribution Width 15.9 % (11.0-16.0); White Blood Count 12.1 X10*3/uL (4.8-10.8)
[2022-03-29 06:58] LABS: Anion Gap 17 (12-20); Blood Urea Nitrogen 7 mg/dL (9-16); Calcium 8.2 mg/dL (8.4-10.2); Carbon Dioxide 26 mmol/L (22-29); Chloride 95 mmol/L (96-108); Creatinine Clr Calc Pharmacy 163.3; Estimated Glomerular Filt Rate > 60; Glucose Random 88 mg/dL (60-115); Sodium 135 mmol/L (135-145)
[2022-03-29] MEDS: Acetaminophen 325 MG TABLET 650 MG PO (09:17)
[2022-03-29] MEDS: Hydrocortisone Sod Succ/PF 100 MG VIAL IVPUSH (09:18)
[2022-03-29] MEDS: Folic Acid 1 MG TABLET PO (09:18)
[2022-03-29] MEDS: Thiamine HCL 100 MG TABLET PO (09:18)
[2022-03-29] MEDS: 0.9 % Sodium Chloride Flush 3 ML SYRINGE IVFLUSH (09:18)
[2022-03-29] MEDS: Potassium Chloride Packet 20 MEQ PACKET 40 MEQ PO (09:18)
[2022-03-29] MEDS: Lactated Ringers 1,000 ML 100 ML IVCONT (09:19)
[2022-03-29] MEDS: diphenhydrAMINE HCL 50 MG/ML VIAL 25 MG IVPUSH (09:47)
--- NOTE | 2022-03-29 10:04 | PC.RT ---
NIF -42 VC 3.82
--- NOTE | 2022-03-29 10:26 | PHA.MEDREC ---
Pharmacy Consult ? Medication Reconciliation Pharmacy has completed the medication reconciliation.
[2022-03-29] MEDS: Immun Glob G(IgG)/Gly/IGA Ov50 200 ML IV (11:16)
--- NOTE | 2022-03-29 11:41 | PC.NURSE ---
Cindy PADILLA to the bedside to eval for possible CIWA - holding phenobarbitol for now as s/s are mild. Awaiting neuro eval.
[2022-03-29 12:30] LABS: Folate < 1.6 ng/mL (> or = 4.0); Vitamin B12 433 pg/mL (200-900)
--- NOTE | 2022-03-29 12:57 | P.CNNE_ITS ---
History of Present Illness Data of Consult Service Date: 03/29/22 Primary Care Provider: Geo Keen [facility] HPI Reason for consult: Leg weakness 42 years old man with alcohol abuse drinking multiple drinks every night came to hospital with numbness and tingling weakness of his hands and arms and legs during last few days. He denied any recent cold or flu-like illness or trauma. There was no bowel bladder complaint. There was no problem with speech or language. There was no rash. Review of Systems Review of Systems: As per HPI [facility] Past Medical History Medical History Dermatitis ETOH abuse Family History Family History Father Heart disease Surgical History Surgical History No pertinent past surgical history Social History Social History Housing: Apartment Alcohol intake: current Alcohol type: hard liquor Patient Tobacco Use Status: Current everyday Tobacco user Tobacco use type: Cigarette Cigarettes Per Day: 10 e-Cigarette/Vaping Use: Never Used Second Hand Smoke Exposure: Yes Use of substances other than those prescribed or required for medical reasons: No Advance Directives: No Advance Directives Information Provided: No service: No Current occupational status: employed Current occupation: [employer] Current occupational exposures/hazards: No Meds Allergies Allergy/AdvReac Type Severity Reaction Status Date / Time No Known Allergies Allergy Verified 03/13/22 08:19 Active Medications: Current Medications Acetaminophen (Acetaminophen 325 Mg Tablet) 650 mg PO Q6H PRN PRN Reason: Pain, Mild (Pain Scale 1-3) Acetaminophen (Acetaminophen 325 Mg Tablet) 650 mg PO DAILY@0730 [facility] Stop: 04/02/22 07:31 Last Admin: 03/29/22 09:17 Dose: 650 mg Diphenhydramine HCl (Diphenhydramine Hcl 50 Mg/Ml Vial) 25 mg IVPUSH DAILY@0730 [facility] Stop: 04/02/22 07:31 Last Admin: 03/29/22 09:47 Dose: 25 mg Docusate Sodium (Docusate Sodium 100 Mg Capsule) 100 mg PO DAILY PRN PRN Reason: Constipation Enoxaparin Sodium (Enoxaparin Sodium 40 Mg/0.4 Ml Syringe) 40 mg SUBCUT Q24H [facility] Last Admin: 03/29/22 05:51 Dose: 40 mg Folic Acid (Folic Acid 1 Mg Tablet) 1 mg PO DAILY [facility] Last Admin: 03/29/22 09:18 Dose: 1 mg Hydrocortisone Sodium Succinate (Hydrocortisone Sod Succ/Pf 100 Mg Vial) 100 mg IVPUSH DAILY@0730 [facility] Stop: 04/02/22 07:31 Last Admin: 03/29/22 09:18 Dose: 100 mg Lactated Ringer's (Lr) 1,000 mls @ 100 mls/hr IVCONT .Q10H [facility] Last Admin: 03/29/22 09:19 Dose: 100 mls/hr Immune Globulin (Gammagard 10%) 50 mls @ 30 mls/hr IV DAILY@0800 [facility] Stop: 04/02/22 09:39 Last Infusion: 03/29/22 11:16 Dose: Infused Immune Globulin (Gammagard 10%) 200 mls @ 30 mls/hr IV DAILY@0940 [facility] Stop: 04/02/22 16:19 Last Admin: 03/29/22 11:16 Dose: 30 mls/hr Ondansetron HCl (Ondansetron Hcl 4 Mg/2 Ml Vial) 4 mg IVPUSH Q8H PRN PRN Reason: Nausea and Vomiting Pharmacy Consult (Consult Rx Etoh Phenob Im/Po) 1 each MISCELLANE ONCE PRN; Protocol PRN Reason: Consult order Phenobarbital (Phenobarbital 15 Mg Tablet) 45 mg PO BID [facility] Stop: 03/31/22 09:01 Phenobarbital (Phenobarbital 15 Mg Tablet) 15 mg PO BID [facility] Stop: 04/02/22 09:01 Phenobarbital (Phenobarbital 15 Mg Tablet) 15 mg PO DAILY [facility] Stop: 04/04/22 09:01 Phenobarbital Sodium (Phenobarbital Sodium 130 Mg/Ml Vial Im Q3hx2) 191 mg IM Q3H [facility] Stop: 03/29/22 17:01 Sodium Chloride (0.9 % Sodium Chloride Flush 3 Ml Syringe) 3 ml IVFLUSH QSHIFT [facility] Last Admin: 03/29/22 09:18 Dose: 3 ml Thiamine HCl (Thiamine Hcl 100 Mg Tablet) 100 mg PO DAILY [facility] Last Admin: 03/29/22 09:18 Dose: 100 mg Home Medications Medication Instructions Recorded Confirmed Last Taken Type No Known Home Meds 03/29/22 03/29/22 Unknown History Physical Exam Vital Signs: Vital Signs: Last Vital Signs Temp 97.0 F 03/29/22 11:41 Pulse 95 03/29/22 11:41 Resp 14 03/29/22 11:41 BP 107/80 03/29/22 11:41 Pulse Ox 100 03/29/22 11:41 O2 Del Method 03/29/22 11:41 BMI result Body Mass Index 19.0 Neuro: Other: Alert and awake with normal spontaneity of speech fluency comprehension and flat affect. Deep tendon reflexes are absent. Plantars were flexor. Mild bilateral ataxia was noted with [id number] testing. Joint position sensation was present in toes. He was able to lift each leg above up to about 60 70 degrees. Speech was normal Results Labs CBC & Chem 7: 03/29/22 06:06 03/29/22 06:06 Labs: Short CBC 03/28/22 03/29/22 Range/Units 15:20 06:06 WBC 16.6 H 12.1 H (4.8-10.8) X10*3/uL Hgb 16.2 13.9 L (14.0-18.0) g/dl Hct 44.7 38.2 L (42.0-52.0) % Plt Count 129 L 103 L (160-400) X10*3/uL BMP 03/28/22 03/28/22 03/29/22 15:20 20:16 06:06 Sodium 134 L 133 L 135 Potassium 3.0 L 3.5 3.0 L Chloride 89 L 94 L 95 L Carbon Dioxide 28 26 26 BUN 8 L 7 L 7 L Creatinine 0.68 0.58 0.54 Calcium 9.4 8.1 L D 8.2 L Liver Function 03/28/22 03/28/22 Range/Units 15:20 20:16 Total Bilirubin 1.4 H 1.4 H (0.0-1.0) mg/dL Direct Bilirubin 0.7 H (0.0-0.5) mg/dL AST 56 H 49 H (5-37) U/L ALT 45 H 37 (0-40) U/L Alkaline Phosphatase 224 H D 197 H (39-117) U/L Albumin 3.5 3.0 L (3.5-5.0) g/dL Urine 03/28/22 Range/Units 19:01 Urine Color Yellow Urine Appearance Clear Urine pH 8.5 (5.0-9.0) Ur Specific [place] >= 1.030 H (1.005-1.025) Urine Protein Negative (Neg-Trace) mg/dL Urine Glucose (UA) Negative (Negative) mg/dL CSF protein was 56 per Microbiology Microbiology Results: Microbiology 03/29/22 01:39 Cerebrospinal Fluid Gram Stain - Final 03/29/22 01:39 Cerebrospinal Fluid CSF Examination - Final 03/29/22 01:39 Cerebrospinal Fluid Fluid Description - Final Assessment and Plan (1) Numbness and tingling of lower extremity: Status: Acute 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 This could be alcohol related nutritional neuropathy. To rule out demyelinating neuropathy or inflammatory neuropathy, CSF was checked and protein level was 56 which was not significantly high to make a definitive diagnosis. Recommendation at this time are to correct his electrolyte abnormalities, treat him with thiamine folate and B12 vitamins, involved PT OT, and have an EMG nerve conduction study to define the nature of neuropathy. Procedures Date of Service Date of Service: 03/29/22
--- NOTE | 2022-03-29 13:08 | MHC.CM.PN ---
met with pt and his they are independent and not expected to need servceis ?care team seeing pt pt is not covid vaxx has own ride home
--- NOTE | 2022-03-29 14:36 | PC.NURSE ---
Continuing CIWA monitoring, pt denies any s/s of withdrawal. Pt wants to hold off on phenobarb protocol for now.
--- NOTE | 2022-03-29 15:22 | PM.EVENT ---
Event Note Date of Service: 03/29/22 Event Note: Chart reviewed patient examined. Agree with H&P and plan as outlined. Neurological notes reviewed. Will replete folate and divalents.
[2022-03-29] MEDS: Nicotine 21 MG PATCH.TD24 TRANSDERMA (20:51)
[2022-03-29] MEDS: PHENobarbitaL 15 MG TABLET 45 MG PO (20:51)
[2022-03-30 03:51] VITALS: BP 129/77; PULSE 76; RESP 20; TEMP 37; O2SAT 97
[2022-03-30] MEDS: Lactated Ringers 1,000 ML 100 ML IVCONT (05:49)
[2022-03-30 06:45] LABS: MANUAL DIFF FLAG NO
[2022-03-30 06:53] LABS: Basophils Absolute Auto 0.1 X10*3/uL (0.0-0.2); Basophils Percent Auto 0.5 % (0-2); Eosinophils Absolute Auto 0.1 X10*3/uL (0.0-0.4); Eosinophils Percent Auto 0.8 % (0-4); Hematocrit 37.5 % (42.0-52.0); Hemoglobin 13.1 g/dl (14.0-18.0); Imm Gran Abs Auto 0.07 X10*3/uL (0.00-0.03); Imm Gran Pct Auto 0.6 % (0.0-0.4); Lymphocytes Absolute Auto 2.2 X10*3/uL (1.2-4.9); Lymphocytes Percent Auto 19.5 % (20-40); Mean Corpuscular HGB Conc 34.9 g/dl (31.0-36.0); Mean Corpuscular Hemoglobin 34.6 pg (27.0-33.0); Mean Corpuscular Volume 98.9 fL (80.0-98.0); Mean Platelet Volume 9.5 fL (9.4-12.4); Monocytes Percent Auto 9.1 % (2-11); NRBC Pct Auto 0.2 /100WBC (0.0-0.2); Neutrophils Absolute Auto 7.7 x10*3/uL (2.0-8.3); Neutrophils Percent Auto 69.5 % (45-73); Platelet Count 102 X10*3/uL (160-400); Red Blood Count 3.79 X10*6/uL (4.60-5.80); Red Cell Distribution Width 15.9 % (11.0-16.0)
[2022-03-30 07:22] LABS: Alanine Aminotransferase 34 U/L (0-40); Alkaline Phosphatase 176 U/L (39-117); Anion Gap 16 (12-20); Aspartate Amino Transferase 47 U/L (5-37); Bilirubin Total 0.9 mg/dL (0.0-1.0); Blood Urea Nitrogen 8 mg/dL (9-16); Calcium 8.2 mg/dL (8.4-10.2); Carbon Dioxide 20 mmol/L (22-29); Chloride 100 mmol/L (96-108); Creatinine Clr Calc Pharmacy 160.3; Estimated Glomerular Filt Rate > 60; Glucose Fasting 93 mg/dL (60-99); Potassium 3.5 mmol/L (3.3-5.1); Sodium 132 mmol/L (135-145); Total Protein 6.2 g/dL (6.5-8.0)
[2022-03-30] MEDS: Nicotine 21 MG PATCH.TD24 TRANSDERMA (07:40)
[2022-03-30] MEDS: Acetaminophen 325 MG TABLET 650 MG PO (07:41)
[2022-03-30] MEDS: diphenhydrAMINE HCL 50 MG/ML VIAL 25 MG IVPUSH (07:41)
[2022-03-30] MEDS: Folic Acid 1 MG TABLET PO (07:41)
[2022-03-30] MEDS: PHENobarbitaL 15 MG TABLET 45 MG PO (07:41)
[2022-03-30] MEDS: Hydrocortisone Sod Succ/PF 100 MG VIAL IVPUSH (07:41)
[2022-03-30] MEDS: Thiamine HCL 100 MG TABLET PO (07:42)
[2022-03-30] MEDS: 0.9 % Sodium Chloride Flush 3 ML SYRINGE IVFLUSH ×2 (07:42→16:44)
[2022-03-30 08:00] VITALS: BP 116/88; PULSE 100; RESP 16; TEMP 36.6; O2SAT 100
[2022-03-30] MEDS: Immun Glob G(IgG)/Gly/IGA Ov50 200 ML IV (09:57)
[2022-03-30] MEDS: 0.9 % Sodium Chloride 1,000 ML 100 ML IVCONT ×2 (10:01→16:44)
[2022-03-30 11:51] VITALS: BP 131/85; PULSE 96; RESP 16; TEMP 36.4; O2SAT 99
--- NOTE | 2022-03-30 13:16 | P.PNIM_ITS ---
Subjective Subjective Date of Service: 03/30/22 Interval History: Persistent difficulty with ambulation. No signs of withdrawal Review of Systems Denies chest pain Denies shortness of breath Denies nausea vomiting diarrhea Admits lower extremity weakness Physical Exam Vital Signs: Vital Signs: Last Vital Signs Temp 97.5 F 03/30/22 11:51 Pulse 96 03/30/22 11:51 Resp 16 03/30/22 11:51 BP 131/85 03/30/22 11:51 Pulse Ox 99 03/30/22 11:51 O2 Del Method 03/30/22 11:51 BMI result Body Mass Index 19.0 Const: Other: No acute issues Resp: Other: Clear to auscultation bilaterally no rales rhonchi or wheezes Cardio: Other: No S4; positive S1-S2; no S3 murmurs rubs or gallops GI: Other: Soft nontender nondistended normoactive bowel sounds Extrem: Other: No edema bilaterally Objective Data Active Medications Acetaminophen (Acetaminophen 325 Mg Tablet) 650 mg PO Q6H PRN PRN Reason: Pain, Mild (Pain Scale 1-3) Acetaminophen (Acetaminophen 325 Mg Tablet) 650 mg PO DAILY@30 [facility] Stop: 04/02/22 07:31 Last Admin: 03/30/22 07:41 Dose: 650 mg Documented By: ADELINE Diphenhydramine HCl (Diphenhydramine Hcl 50 Mg/Ml Vial) 25 mg IVPUSH DAILY@30 [facility] Stop: 04/02/22 07:31 Last Admin: 03/30/22 07:41 Dose: 25 mg Documented By: ADELINE Docusate Sodium (Docusate Sodium 100 Mg Capsule) 100 mg PO DAILY PRN PRN Reason: Constipation Enoxaparin Sodium (Enoxaparin Sodium 40 Mg/0.4 Ml Syringe) 40 mg SUBCUT Q24H [facility] Last Admin: 03/30/22 06:07 Dose: Not Given Documented By: NASRA Non-Admin Reason: Patient Refused Folic Acid (Folic Acid 1 Mg Tablet) 1 mg PO DAILY [facility] Last Admin: 03/30/22 07:41 Dose: 1 mg Documented By: ADELINE Hydrocortisone Sodium Succinate (Hydrocortisone Sod Succ/Pf 100 Mg Vial) 100 mg IVPUSH DAILY@30 [facility] Stop: 04/02/22 07:31 Last Admin: 03/30/22 07:41 Dose: 100 mg Documented By: ADELINE Immune Globulin (Gammagard 10%) 50 mls @ 30 mls/hr IV DAILY@0800 [facility] Stop: 04/02/22 09:39 Last Infusion: 03/30/22 09:56 Dose: 0 mls/hr Documented By: ADELINE Immune Globulin (Gammagard 10%) 200 mls @ 30 mls/hr IV DAILY@0940 [facility] Stop: 04/02/22 16:19 Last Admin: 03/30/22 09:57 Dose: 30 mls/hr Documented By: ADELINE Sodium Chloride (Ns) 1,000 mls @ 100 mls/hr IVCONT .Q10H [facility] Last Admin: 03/30/22 10:01 Dose: 100 mls/hr Documented By: ADELINE Nicotine (Nicotine 21 Mg Patch.Td24) 21 mg TRANSDERMA DAILY [facility] Last Admin: 03/30/22 07:40 Dose: 21 mg Documented By: ADELINE Ondansetron HCl (Ondansetron Hcl 4 Mg/2 Ml Vial) 4 mg IVPUSH Q8H PRN PRN Reason: Nausea and Vomiting Pharmacy Consult (Consult Rx Etoh Phenob Im/Po) 1 each MISCELLANE ONCE PRN; Protocol PRN Reason: Consult order Phenobarbital (Phenobarbital 15 Mg Tablet) 45 mg PO BID [facility] Stop: 03/31/22 09:01 Last Admin: 03/30/22 07:41 Dose: 45 mg Documented By: ADELINE Phenobarbital (Phenobarbital 15 Mg Tablet) 15 mg PO BID [facility] Stop: 04/02/22 09:01 Phenobarbital (Phenobarbital 15 Mg Tablet) 15 mg PO DAILY [facility] Stop: 04/04/22 09:01 Sodium Chloride (0.9 % Sodium Chloride Flush 3 Ml Syringe) 3 ml IVFLUSH QSHIFT [facility] Last Admin: 03/30/22 07:42 Dose: 3 ml Documented By: ADELINE Thiamine HCl (Thiamine Hcl 100 Mg Tablet) 100 mg PO DAILY [facility] Last Admin: 03/30/22 07:42 Dose: 100 mg Documented By: ADELINE Labs CBC & Chem 7: 03/30/22 06:37 03/30/22 06:37 Labs: Laboratory Results - last 24 hr 03/30/22 03/30/22 06:37 06:37 MCV 98.9 H MCH 34.6 H MCHC 34.9 RDW 15.9 Plt Count 102 L MPV 9.5 Immature Gran % (Auto) 0.6 H Neut % (Auto) 69.5 Lymph % (Auto) 19.5 L [place] % (Auto) 9.1 Eos % (Auto) 0.8 Baso % (Auto) 0.5 Lymph # (Auto) 2.2 [place] # (Auto) 1.0 Eos # (Auto) 0.1 Baso # (Auto) 0.1 Abs Immat Gran (auto) 0.07 H Absolute Neuts (auto) 7.7 Absolute Nucleated RBC 0.020 H Nucleated RBC % (auto) 0.2 Anion Gap 16 Estim Creat Clear Calc 160.3 Estimated GFR > 60 Fasting Glucose 93 Calcium 8.2 L Total Bilirubin 0.9 AST 47 H ALT 34 Alkaline Phosphatase 176 H Total Protein 6.2 L Albumin 3.0 L Microbiology Microbiology Results: Microbiology 03/29/22 01:39 Gram Stain - Final Cerebrospinal Fluid CSF Examination - Final Fluid Description - Final CSF Culture - Preliminary No growth after 1 day 03/28/22 17:17 Blood Culture - Preliminary Blood - Venous No growth after 24 hours. 03/28/22 17:00 Blood Culture - Preliminary Blood - Venous No growth after 24 hours. Assessment and Plan (1) Numbness and tingling of both upper extremities: Status: Acute (2) ETOH abuse: Status: Acute Plan 42-year-old male with past medical history of alcohol abuse presents to the hospital with complaint of lower extremity numbness tingling and weakness. 1.Lower extremity weakness numbness and tingling - divalents/thiamine/folate repletion -EMG in am 2.Alcohol abuse - not in withdrawal at this time - will place on CIWA - thiamine and folic acid supplement DVT prophylaxis: Lovenox Pt will require a minimum 2 night hospital stay for IVIG Quality Stroke Does the patient have a stroke diagnosis?: No VTE Prior VTE?: No VTE Risk Level:: Medical - moderate - high VTE Device Contraindication: Treatment Not Indicated VTE Drug Contraindication: N/A - Med Ordered
[2022-03-30 15:47] VITALS: BP 130/81; PULSE 100; RESP 16; TEMP 36.6; O2SAT 99
[2022-03-30 20:47] VITALS: BP 134/83; PULSE 89; RESP 18; TEMP 36.7; O2SAT 100
[2022-03-30] MEDS: Melatonin 3 MG TABLET 6 MG PO (22:15)
[2022-03-30 22:37] LABS: Lyme (B. burgdorferi) PCR NOT DETECTED (NOT DETECTED)
[2022-03-31] VITALS: BP 123/90; PULSE 87; RESP 18; TEMP 37.1; O2SAT 99
[2022-03-31] MEDS: 0.9 % Sodium Chloride 1,000 ML 100 ML IVCONT ×3 (03:30→22:00)
[2022-03-31 04:00] VITALS: BP 111/66; PULSE 86; RESP 18; TEMP 37.3; O2SAT 98
--- NOTE | 2022-03-31 05:52 | PC.NURSE ---
Patient refused his 0600 dose of Lovenox. Stated he is walking enough and moving around enough to not needed. Patient educated on importance of Lovenox for dvt prophylaxis. Patient continues to refuse.
[2022-03-31 06:56] LABS: MANUAL DIFF FLAG NO
[2022-03-31 07:01] LABS: Basophils Absolute Auto 0.1 X10*3/uL (0.0-0.2); Basophils Percent Auto 0.4 % (0-2); Eosinophils Absolute Auto 0.1 X10*3/uL (0.0-0.4); Eosinophils Percent Auto 0.9 % (0-4); Hematocrit 32.4 % (42.0-52.0); Hemoglobin 11.4 g/dl (14.0-18.0); Imm Gran Pct Auto 0.9 % (0.0-0.4); Lymphocytes Absolute Auto 1.7 X10*3/uL (1.2-4.9); Lymphocytes Percent Auto 15.1 % (20-40); Mean Corpuscular HGB Conc 35.2 g/dl (31.0-36.0); Mean Corpuscular Hemoglobin 35.6 pg (27.0-33.0); Mean Corpuscular Volume 101.3 fL (80.0-98.0); Mean Platelet Volume 9.6 fL (9.4-12.4); Monocytes Absolute Auto 0.9 X10*3/uL (0.1-1.2); Monocytes Percent Auto 8.1 % (2-11); Neutrophils Absolute Auto 8.6 x10*3/uL (2.0-8.3); Neutrophils Percent Auto 74.6 % (45-73); Platelet Count 98 X10*3/uL (160-400); Red Cell Distribution Width 15.8 % (11.0-16.0); White Blood Count 11.5 X10*3/uL (4.8-10.8)
[2022-03-31 07:35] LABS: Alanine Aminotransferase 33 U/L (0-40); Albumin Level 2.6 g/dL (3.5-5.0); Alkaline Phosphatase 135 U/L (39-117); Anion Gap 12 (12-20); Aspartate Amino Transferase 47 U/L (5-37); Bilirubin Total 0.6 mg/dL (0.0-1.0); Blood Urea Nitrogen 6 mg/dL (9-16); Calcium 7.7 mg/dL (8.4-10.2); Carbon Dioxide 21 mmol/L (22-29); Chloride 106 mmol/L (96-108); Creatinine Clr Calc Pharmacy 169.6; Estimated Glomerular Filt Rate > 60; Glucose Fasting 74 mg/dL (60-99); Potassium 3.1 mmol/L (3.3-5.1); Sodium 136 mmol/L (135-145); Total Protein 5.7 g/dL (6.5-8.0)
[2022-03-31 07:54] LABS: Folate 2.9 ng/mL (> or = 4.0)
[2022-03-31 08:00] VITALS: BP 109/71; PULSE 101; RESP 20; TEMP 36.8; O2SAT 99
[2022-03-31] MEDS: Acetaminophen 325 MG TABLET 650 MG PO (08:44)
[2022-03-31] MEDS: Hydrocortisone Sod Succ/PF 100 MG VIAL IVPUSH (08:44)
[2022-03-31] MEDS: diphenhydrAMINE HCL 50 MG/ML VIAL 25 MG IVPUSH (08:44)
[2022-03-31] MEDS: Folic Acid 1 MG TABLET PO (08:45)
[2022-03-31] MEDS: Nicotine 21 MG PATCH.TD24 TRANSDERMA (08:45)
[2022-03-31] MEDS: Thiamine HCL 100 MG TABLET PO (08:45)
[2022-03-31 12:00] VITALS: BP 142/95; PULSE 108; RESP 20; TEMP 36.6; O2SAT 99
[2022-03-31] MEDS: Immun Glob G(IgG)/Gly/IGA Ov50 200 ML IV (12:18)
--- NOTE | 2022-03-31 13:39 | MHC.CLN ---
PT REPORTED 20# WT LOSS UPON ADMISSION HT ADJUSTED TO 5'10 BMI 20-WNL PT DOES NOT APPEAR MALNOURISHED OR UNDER WT FOR HT PREVIOUS WT HX REVEALS: CURRENT 63.5KG 63.1KG (04/09/21) WT REMAINS STABLE X 1 YEAR, NO SIGNIFICANT CHANGES NOTED DIET RX: REGULAR-APPROPRIATE PT ATE 100% X 2 MEALS PT REFUSED OFFER FOR NUTRITION SUPPLEMENT WITH MEALS MONITOR PO INTAKE CLOSELY AND CONTINUE CURRENT CARE PLAN
--- NOTE | 2022-03-31 14:15 | PM.NEUROCN ---
History of Present Illness Data of Consult Service Date: 03/31/22 Primary Care Provider: Geo Keen, [facility]- HPI Reason for consult: Neuropathy 42 years old man with alcohol use and acute neuropathy with somewhat high CSF protein being treated with IVIG. Apparently he was better after 2-3 doses of IVIG. He was also quite depressed wanted to leave. [facility], LAT[facility] Past Medical History Medical History Dermatitis ETOH abuse Family History Family History Father Heart disease Surgical History Surgical History No pertinent past surgical history Social History Social History Household Members: Spouse Housing: Apartment Do you presently have visiting nurse or other home services: No Alcohol intake: current Alcohol type: hard liquor Patient Tobacco Use Status: Current everyday Tobacco user Tobacco use type: Cigarette Cigarettes Per Day: 10 e-Cigarette/Vaping Use: Never Used Second Hand Smoke Exposure: Yes service: No Current occupational status: employed Current occupation: [employer] Current occupational exposures/hazards: No Meds Allergies Allergy/AdvReac Type Severity Reaction Status Date / Time No Known Allergies Allergy Verified 03/13/22 08:19 Active Medications: Current Medications Acetaminophen (Acetaminophen 325 Mg Tablet) 650 mg PO Q6H PRN PRN Reason: Pain, Mild (Pain Scale 1-3) Acetaminophen (Acetaminophen 325 Mg Tablet) 650 mg PO DAILY@0730 [facility] Stop: 04/02/22 07:31 Last Admin: 03/31/22 08:44 Dose: 650 mg Diphenhydramine HCl (Diphenhydramine Hcl 50 Mg/Ml Vial) 25 mg IVPUSH DAILY@0730 [facility] Stop: 04/02/22 07:31 Last Admin: 03/31/22 08:44 Dose: 25 mg Docusate Sodium (Docusate Sodium 100 Mg Capsule) 100 mg PO DAILY PRN PRN Reason: Constipation Enoxaparin Sodium (Enoxaparin Sodium 40 Mg/0.4 Ml Syringe) 40 mg SUBCUT Q24H [facility] Last Admin: 03/31/22 05:53 Dose: Not Given Folic Acid (Folic Acid 1 Mg Tablet) 1 mg PO DAILY [facility] Last Admin: 03/31/22 08:45 Dose: 1 mg Hydrocortisone Sodium Succinate (Hydrocortisone Sod Succ/Pf 100 Mg Vial) 100 mg IVPUSH DAILY@0730 [facility] Stop: 04/02/22 07:31 Last Admin: 03/31/22 08:44 Dose: 100 mg Immune Globulin (Gammagard 10%) 50 mls @ 30 mls/hr IV DAILY@0800 [facility] Stop: 04/02/22 09:39 Last Infusion: 03/31/22 12:25 Dose: Infused Immune Globulin (Gammagard 10%) 200 mls @ 30 mls/hr IV DAILY@0940 [facility] Stop: 04/02/22 16:19 Last Admin: 03/31/22 12:18 Dose: 30 mls/hr Sodium Chloride (Ns) 1,000 mls @ 100 mls/hr IVCONT .Q10H [facility] Last Admin: 03/31/22 13:57 Dose: 100 mls/hr Melatonin (Melatonin 3 Mg Tablet) 6 mg PO BEDTIME PRN PRN Reason: Insomnia Last Admin: 03/30/22 22:15 Dose: 6 mg Nicotine (Nicotine 21 Mg Patch.Td24) 21 mg TRANSDERMA DAILY [facility] Last Admin: 03/31/22 08:45 Dose: 21 mg Ondansetron HCl (Ondansetron Hcl 4 Mg/2 Ml Vial) 4 mg IVPUSH Q8H PRN PRN Reason: Nausea and Vomiting Pharmacy Consult (Consult Rx Etoh Phenob Im/Po) 1 each MISCELLANE ONCE PRN; Protocol PRN Reason: Consult order Sodium Chloride (0.9 % Sodium Chloride Flush 3 Ml Syringe) 3 ml IVFLUSH QSHIFT [facility] Last Admin: 03/31/22 08:45 Dose: Not Given Thiamine HCl (Thiamine Hcl 100 Mg Tablet) 100 mg PO DAILY [facility] Last Admin: 03/31/22 08:45 Dose: 100 mg Home Medications Medication Instructions Recorded Confirmed Last Taken Type No Known Home Meds 03/29/22 03/29/22 Unknown History Physical Exam Vital Signs: Vital Signs: Last Vital Signs Temp 97.8 F 03/31/22 12:00 Pulse 108 H 03/31/22 12:00 Resp 20 03/31/22 12:00 BP 142/95 H 03/31/22 12:00 Pulse Ox 99 03/31/22 12:00 O2 Del Method 03/31/22 12:00 BMI result Body Mass Index 19.0 Neuro: Other: Alert and awake but quite depressed. There was no obvious focal facial or arm weakness. Speech was normal. With assistance he was able to walk. Results Labs CBC & Chem 7: 03/31/22 06:12 03/31/22 06:12 Labs: Short CBC 03/31/22 Range/Units 06:12 WBC 11.5 H (4.8-10.8) X10*3/uL Hgb 11.4 L (14.0-18.0) g/dl Hct 32.4 L (42.0-52.0) % Plt Count 98 L (160-400) X10*3/uL BMP 03/31/22 06:12 Sodium 136 Potassium 3.1 L Chloride 106 Carbon Dioxide 21 L BUN 6 L Creatinine 0.52 Calcium 7.7 L D Liver Function 03/31/22 Range/Units 06:12 Total Bilirubin 0.6 (0.0-1.0) mg/dL AST 47 H (5-37) U/L ALT 33 (0-40) U/L Alkaline Phosphatase 135 H D (39-117) U/L Albumin 2.6 L (3.5-5.0) g/dL Microbiology Microbiology Results: Microbiology 03/29/22 01:39 Cerebrospinal Fluid Gram Stain - Final 03/29/22 01:39 Cerebrospinal Fluid CSF Examination - Final 03/29/22 01:39 Cerebrospinal Fluid Fluid Description - Final 03/29/22 01:39 Cerebrospinal Fluid CSF Culture - Preliminary No growth after 2 days 03/28/22 17:17 Blood - Venous Blood Culture - Preliminary No growth after 48 hours. 03/28/22 17:00 Blood - Venous Blood Culture - Preliminary No growth after 48 hours. 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 At this time my recommendation is to finish course of IVIG for 5 days. He was also quite depressed and I recommend starting him on an antidepressant. He would need counseling to avoid alcohol use. Procedures Date of Service Date of Service: 03/31/22
--- NOTE | 2022-03-31 15:48 | HO.PM.IMPN ---
Subjective Subjective Date of Service: 03/31/22 Interval History: Markedly improved with IgG. Ambulating in hallway with walker Review of Systems Denies chest pain Denies shortness of breath Denies nausea vomiting diarrhea Admits lower extremity weakness Physical Exam Vital Signs: Vital Signs: Last Vital Signs Temp 97.8 F 03/31/22 12:00 Pulse 108 H 03/31/22 12:00 Resp 20 03/31/22 12:00 BP 142/95 H 03/31/22 12:00 Pulse Ox 99 03/31/22 12:00 O2 Del Method 03/31/22 12:00 BMI result Body Mass Index 19.0 Const: Other: No acute issues Resp: Other: Clear to auscultation bilaterally no rales rhonchi or wheezes Cardio: Other: No S4; positive S1-S2; no S3 murmurs rubs or gallops GI: Other: Soft nontender nondistended normoactive bowel sounds Extrem: Other: No edema bilaterally Objective Data Active Medications Acetaminophen (Acetaminophen 325 Mg Tablet) 650 mg PO Q6H PRN PRN Reason: Pain, Mild (Pain Scale 1-3) Acetaminophen (Acetaminophen 325 Mg Tablet) 650 mg PO DAILY@0730 [facility] Stop: 04/02/22 07:31 Last Admin: 03/31/22 08:44 Dose: 650 mg Documented By: GODFREY Diphenhydramine HCl (Diphenhydramine Hcl 50 Mg/Ml Vial) 25 mg IVPUSH DAILY@0730 [facility] Stop: 04/02/22 07:31 Last Admin: 03/31/22 08:44 Dose: 25 mg Documented By: GODFREY Docusate Sodium (Docusate Sodium 100 Mg Capsule) 100 mg PO DAILY PRN PRN Reason: Constipation Enoxaparin Sodium (Enoxaparin Sodium 40 Mg/0.4 Ml Syringe) 40 mg SUBCUT Q24H [facility] Last Admin: 03/31/22 05:53 Dose: Not Given Documented By: PARIS Non-Admin Reason: Patient Refused Folic Acid (Folic Acid 1 Mg Tablet) 1 mg PO DAILY [facility] Last Admin: 03/31/22 08:45 Dose: 1 mg Documented By: GODFREY Hydrocortisone Sodium Succinate (Hydrocortisone Sod Succ/Pf 100 Mg Vial) 100 mg IVPUSH DAILY@30 [facility] Stop: 04/02/22 07:31 Last Admin: 03/31/22 08:44 Dose: 100 mg Documented By: GODFREY Immune Globulin (Gammagard 10%) 50 mls @ 30 mls/hr IV DAILY@0800 [facility] Stop: 04/02/22 09:39 Last Infusion: 03/31/22 12:25 Dose: 0 mls/hr Documented By: GODFREY Immune Globulin (Gammagard 10%) 200 mls @ 30 mls/hr IV DAILY@0940 [facility] Stop: 04/02/22 16:19 Last Admin: 03/31/22 12:18 Dose: 30 mls/hr Documented By: GODFREY Sodium Chloride (Ns) 1,000 mls @ 100 mls/hr IVCONT .Q10H [facility] Last Admin: 03/31/22 13:57 Dose: 100 mls/hr Documented By: GODFREY Melatonin (Melatonin 3 Mg Tablet) 6 mg PO BEDTIME PRN PRN Reason: Insomnia Last Admin: 03/30/22 22:15 Dose: 6 mg Documented By: PARIS Nicotine (Nicotine 21 Mg Patch.Td24) 21 mg TRANSDERMA DAILY [facility] Last Admin: 03/31/22 08:45 Dose: 21 mg Documented By: GODFREY Ondansetron HCl (Ondansetron Hcl 4 Mg/2 Ml Vial) 4 mg IVPUSH Q8H PRN PRN Reason: Nausea and Vomiting Pharmacy Consult (Consult Rx Etoh Phenob Im/Po) 1 each MISCELLANE ONCE PRN; Protocol PRN Reason: Consult order Sodium Chloride (0.9 % Sodium Chloride Flush 3 Ml Syringe) 3 ml IVFLUSH QSHIFT [facility] Last Admin: 03/31/22 08:45 Dose: Not Given Documented By: GODFREY Non-Admin Reason: IV Running Thiamine HCl (Thiamine Hcl 100 Mg Tablet) 100 mg PO DAILY [facility] Last Admin: 03/31/22 08:45 Dose: 100 mg Documented By: GODFREY Labs CBC & Chem 7: 03/31/22 06:12 03/31/22 06:12 Labs: Laboratory Results - last 24 hr 03/29/22 03/30/22 03/31/22 01:39 06:37 06:12 MCV 101.3 H MCH 35.6 H MCHC 35.2 RDW 15.8 Plt Count 98 L MPV 9.6 Immature Gran % (Auto) 0.9 H Neut % (Auto) 74.6 H Lymph % (Auto) 15.1 L [place] % (Auto) 8.1 Eos % (Auto) 0.9 Baso % (Auto) 0.4 Lymph # (Auto) 1.7 [place] # (Auto) 0.9 Eos # (Auto) 0.1 Baso # (Auto) 0.1 Abs Immat Gran (auto) 0.10 H Absolute Neuts (auto) 8.6 H Absolute Nucleated RBC 0.000 Nucleated RBC % (auto) 0.0 Anion Gap Estim Creat Clear Calc Estimated GFR Fasting Glucose Calcium Total Bilirubin AST ALT Alkaline Phosphatase Total Protein Albumin Folate 2.9 L Fld Lyme DNA (PCR) Lyme Disease DNA (PCR) NOT DETECTED 03/31/22 06:12 MCV MCH MCHC RDW Plt Count MPV Immature Gran % (Auto) Neut % (Auto) Lymph % (Auto) [place] % (Auto) Eos % (Auto) Baso % (Auto) Lymph # (Auto) [place] # (Auto) Eos # (Auto) Baso # (Auto) Abs Immat Gran (auto) Absolute Neuts (auto) Absolute Nucleated RBC Nucleated RBC % (auto) Anion Gap 12 Estim Creat Clear Calc 169.6 Estimated GFR > 60 Fasting Glucose 74 Calcium 7.7 L D Total Bilirubin 0.6 AST 47 H ALT 33 Alkaline Phosphatase 135 H D Total Protein 5.7 L Albumin 2.6 L Folate Fld Lyme DNA (PCR) Lyme Disease DNA (PCR) Microbiology Microbiology Results: Microbiology 03/29/22 01:39 Gram Stain - Final Cerebrospinal Fluid CSF Examination - Final Fluid Description - Final CSF Culture - Preliminary No growth after 2 days 03/28/22 17:17 Blood Culture - Preliminary Blood - Venous No growth after 48 hours. 03/28/22 17:00 Blood Culture - Preliminary Blood - Venous No growth after 48 hours. 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 1.Lower extremity weakness numbness and tingling.... Markedly improved with IgG complete course - divalents/thiamine/folate repletion -EMG in am 2.Alcohol abuse - not in withdrawal at this time - will place on CIWA - thiamine and folic acid supplement DVT prophylaxis: Lovenox Patient will require ongoing hospitalization for IV IG Quality Stroke Does the patient have a stroke diagnosis?: No VTE Prior VTE?: No VTE Risk Level:: Medical - moderate - high VTE Device Contraindication: Treatment Not Indicated VTE Drug Contraindication: N/A - Med Ordered
[2022-03-31 16:00] VITALS: BP 130/92; PULSE 102; RESP 17; TEMP 36.3; O2SAT 99
--- NOTE | 2022-03-31 16:01 | MHC.CM.PN ---
No DC today. Patient needs 2 more days of IVIG. The patient is anxious to go home. Same day was asked for outpatient infusion. They have no availability on the schedule. Patient understands that he needs to complete the infusion therapy. DP home no services family transport.
[2022-04-01 04:00] VITALS: BP 138/84; PULSE 99; RESP 20; TEMP 36.5; O2SAT 99
[2022-04-01 06:50] LABS: MANUAL DIFF FLAG NO
[2022-04-01 07:01] LABS: Basophils Percent Auto 0.4 % (0-2); Eosinophils Absolute Auto 0.1 X10*3/uL (0.0-0.4); Eosinophils Percent Auto 0.7 % (0-4); Hematocrit 31.6 % (42.0-52.0); Imm Gran Abs Auto 0.08 X10*3/uL (0.00-0.03); Imm Gran Pct Auto 0.8 % (0.0-0.4); Lymphocytes Absolute Auto 1.8 X10*3/uL (1.2-4.9); Lymphocytes Percent Auto 17.3 % (20-40); Mean Corpuscular HGB Conc 34.8 g/dl (31.0-36.0); Mean Corpuscular Hemoglobin 35.9 pg (27.0-33.0); Mean Corpuscular Volume 103.3 fL (80.0-98.0); Mean Platelet Volume 9.7 fL (9.4-12.4); Monocytes Percent Auto 9.1 % (2-11); Neutrophils Absolute Auto 7.5 x10*3/uL (2.0-8.3); Neutrophils Percent Auto 71.7 % (45-73); Platelet Count 113 X10*3/uL (160-400); Red Blood Count 3.06 X10*6/uL (4.60-5.80); White Blood Count 10.5 X10*3/uL (4.8-10.8)
[2022-04-01 07:55] LABS: Alanine Aminotransferase 32 U/L (0-40); Albumin Level 2.7 g/dL (3.5-5.0); Alkaline Phosphatase 127 U/L (39-117); Anion Gap 12 (12-20); Aspartate Amino Transferase 45 U/L (5-37); Bilirubin Total 0.5 mg/dL (0.0-1.0); Blood Urea Nitrogen 5 mg/dL (9-16); Calcium 7.5 mg/dL (8.4-10.2); Carbon Dioxide 18 mmol/L (22-29); Chloride 100 mmol/L (96-108); Creatinine Clr Calc Pharmacy 154.7; Estimated Glomerular Filt Rate > 60; Glucose Fasting 74 mg/dL (60-99); Potassium 2.7 mmol/L (3.3-5.1); Sodium 127 mmol/L (135-145); Total Protein 6.1 g/dL (6.5-8.0)
[2022-04-01] MEDS: Nicotine 21 MG PATCH.TD24 TRANSDERMA (08:56)
[2022-04-01] MEDS: Folic Acid 1 MG TABLET PO (08:56)
[2022-04-01] MEDS: Thiamine HCL 100 MG TABLET PO (08:56)
[2022-04-01] MEDS: Acetaminophen 325 MG TABLET 650 MG PO (08:56)
[2022-04-01] MEDS: diphenhydrAMINE HCL 50 MG/ML VIAL 25 MG IVPUSH (09:01)
[2022-04-01] MEDS: 0.9 % Sodium Chloride Flush 3 ML SYRINGE IVFLUSH (09:01)
[2022-04-01] MEDS: Hydrocortisone Sod Succ/PF 100 MG VIAL IVPUSH (09:01)
[2022-04-01] MEDS: 0.9 % Sodium Chloride 1,000 ML 100 ML IVCONT (09:11)
[2022-04-01] MEDS: Docusate Sodium 100 MG CAPSULE PO (09:12)
[2022-04-01 11:16] VITALS: BP 133/88; PULSE 88; RESP 18; TEMP 36.1; O2SAT 99
--- NOTE | 2022-04-01 12:29 | MHC.CM.PN ---
Patient states that his insurance ended 03/28/22; because he was terminated from his job. A financial consult referral has been sent to the [employer]. He states that he will have insurance thru his . No insurance information has been received. Unknown if this hospitalization is covered. T/w requested the insurance info and member ID# from the Pt. He has received 5 days of IVIG during this hospitalization. Plan to discharge tomorrow after his final dose of IVIG.
[2022-04-01] MEDS: Immun Glob G(IgG)/Gly/IGA Ov50 200 ML IV (14:07)
--- NOTE | 2022-04-01 15:17 | HO.PM.IMPN ---
Subjective Subjective Date of Service: 04/01/22 Interval History: Continues to improve. Spirits improved as well Review of Systems Denies chest pain Denies shortness of breath Denies nausea vomiting diarrhea Admits lower extremity weakness Physical Exam Vital Signs: Vital Signs: Last Vital Signs Temp 96.9 F 04/01/22 11:16 Pulse 88 04/01/22 11:16 Resp 18 04/01/22 11:16 BP 133/88 04/01/22 11:16 Pulse Ox 99 04/01/22 11:16 O2 Del Method 04/01/22 11:16 BMI result Body Mass Index 19.0 Const: Other: No acute issues Resp: Other: Clear to auscultation bilaterally no rales rhonchi or wheezes Cardio: Other: No S4; positive S1-S2; no S3 murmurs rubs or gallops GI: Other: Soft nontender nondistended normoactive bowel sounds Extrem: Other: No edema bilaterally Objective Data Active Medications Acetaminophen (Acetaminophen 325 Mg Tablet) 650 mg PO Q6H PRN PRN Reason: Pain, Mild (Pain Scale 1-3) Acetaminophen (Acetaminophen 325 Mg Tablet) 650 mg PO DAILY@30 [facility] Stop: 04/02/22 07:31 Last Admin: 04/01/22 08:56 Dose: 650 mg Documented By: GUILLE Diphenhydramine HCl (Diphenhydramine Hcl 50 Mg/Ml Vial) 25 mg IVPUSH DAILY@30 [facility] Stop: 04/02/22 07:31 Last Admin: 04/01/22 09:01 Dose: 25 mg Documented By: GUILLE Docusate Sodium (Docusate Sodium 100 Mg Capsule) 100 mg PO DAILY PRN PRN Reason: Constipation Last Admin: 04/01/22 09:12 Dose: 100 mg Documented By: GUILLE Enoxaparin Sodium (Enoxaparin Sodium 40 Mg/0.4 Ml Syringe) 40 mg SUBCUT Q24H [facility] Last Admin: 04/01/22 05:10 Dose: Not Given Documented By: SAM Non-Admin Reason: Patient Refused Folic Acid (Folic Acid 1 Mg Tablet) 1 mg PO DAILY [facility] Last Admin: 04/01/22 08:56 Dose: 1 mg Documented By: GUILLE Hydrocortisone Sodium Succinate (Hydrocortisone Sod Succ/Pf 100 Mg Vial) 100 mg IVPUSH DAILY@0730 [facility] Stop: 04/02/22 07:31 Last Admin: 04/01/22 09:01 Dose: 100 mg Documented By: GUILLE Immune Globulin (Gammagard 10%) 50 mls @ 30 mls/hr IV DAILY@0800 [facility] Stop: 04/02/22 09:39 Last Infusion: 04/01/22 14:13 Dose: 0 mls/hr Documented By: GUILLE Immune Globulin (Gammagard 10%) 200 mls @ 30 mls/hr IV DAILY@0940 [facility] Stop: 04/02/22 16:19 Last Admin: 04/01/22 14:07 Dose: 30 mls/hr Documented By: GUILLE Melatonin (Melatonin 3 Mg Tablet) 6 mg PO BEDTIME PRN PRN Reason: Insomnia Last Admin: 03/30/22 22:15 Dose: 6 mg Documented By: PARIS Nicotine (Nicotine 21 Mg Patch.Td24) 21 mg TRANSDERMA DAILY [facility] Last Admin: 04/01/22 08:56 Dose: 21 mg Documented By: GUILLE Ondansetron HCl (Ondansetron Hcl 4 Mg/2 Ml Vial) 4 mg IVPUSH Q8H PRN PRN Reason: Nausea and Vomiting Pharmacy Consult (Consult Rx Etoh Phenob Im/Po) 1 each MISCELLANE ONCE PRN; Protocol PRN Reason: Consult order Sodium Chloride (0.9 % Sodium Chloride Flush 3 Ml Syringe) 3 ml IVFLUSH QSHIFT [facility] Last Admin: 04/01/22 09:01 Dose: 3 ml Documented By: GUILLE Thiamine HCl (Thiamine Hcl 100 Mg Tablet) 100 mg PO DAILY [facility] Last Admin: 04/01/22 08:56 Dose: 100 mg Documented By: GUILLE Labs CBC & Chem 7: 04/01/22 06:15 04/01/22 06:15 Labs: Laboratory Results - last 24 hr 04/01/22 04/01/22 06:15 06:15 MCV 103.3 H MCH 35.9 H MCHC 34.8 RDW 16.0 Plt Count 113 L MPV 9.7 Immature Gran % (Auto) 0.8 H Neut % (Auto) 71.7 Lymph % (Auto) 17.3 L [place] % (Auto) 9.1 Eos % (Auto) 0.7 Baso % (Auto) 0.4 Lymph # (Auto) 1.8 [place] # (Auto) 1.0 Eos # (Auto) 0.1 Baso # (Auto) 0.0 Abs Immat Gran (auto) 0.08 H Absolute Neuts (auto) 7.5 Absolute Nucleated RBC 0.000 Nucleated RBC % (auto) 0.0 Anion Gap 12 Estim Creat Clear Calc 154.7 Estimated GFR > 60 Fasting Glucose 74 Calcium 7.5 L Total Bilirubin 0.5 AST 45 H ALT 32 Alkaline Phosphatase 127 H Total Protein 6.1 L Albumin 2.7 L Microbiology Microbiology Results: Microbiology 03/29/22 01:39 Gram Stain - Final Cerebrospinal Fluid CSF Examination - Final Fluid Description - Final CSF Culture - Final No growth after 3 days. 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 1.Lower extremity weakness numbness and tingling.... Markedly improved with IgG complete course -divalents/thiamine/folate repletion -EMG in am 2.Alcohol abuse - not in withdrawal at this time - will place on CIWA - thiamine and folic acid supplement DVT prophylaxis: Lovenox Patient will require ongoing hospitalization for IV IG Quality Stroke Does the patient have a stroke diagnosis?: No VTE Prior VTE?: No VTE Risk Level:: Medical - moderate - high VTE Device Contraindication: Treatment Not Indicated VTE Drug Contraindication: N/A - Med Ordered
[2022-04-01 15:43] VITALS: BP 133/89; PULSE 92; RESP 18; TEMP 36.5; O2SAT 99
[2022-04-01 19:19] VITALS: BP 119/78; PULSE 105; RESP 18; TEMP 36.6; O2SAT 100
[2022-04-01 23:32] VITALS: BP 125/86; PULSE 90; RESP 16; TEMP 36.5; O2SAT 98
[2022-04-02] MEDS: 0.9 % Sodium Chloride Flush 3 ML SYRINGE IVFLUSH ×2 (01:06→08:54)
[2022-04-02 01:17] LABS: Anion Gap 13 (12-20); Blood Urea Nitrogen 4 mg/dL (9-16); Calcium 7.9 mg/dL (8.4-10.2); Carbon Dioxide 19 mmol/L (22-29); Chloride 105 mmol/L (96-108); Creatinine Clr Calc Pharmacy 166.4; Estimated Glomerular Filt Rate > 60; Glucose Random 80 mg/dL (60-115); Potassium 2.8 mmol/L (3.3-5.1); Sodium 134 mmol/L (135-145)
[2022-04-02 01:22] LABS: B Type Natriuretic Peptide 282 pg/mL (<100)
[2022-04-02 06:07] LABS: MANUAL DIFF FLAG NO
[2022-04-02 06:32] LABS: Basophils Percent Auto 0.4 % (0-2); Eosinophils Absolute Auto 0.1 X10*3/uL (0.0-0.4); Eosinophils Percent Auto 0.6 % (0-4); Hematocrit 29.6 % (42.0-52.0); Hemoglobin 10.6 g/dl (14.0-18.0); Imm Gran Abs Auto 0.06 X10*3/uL (0.00-0.03); Imm Gran Pct Auto 0.7 % (0.0-0.4); Lymphocytes Absolute Auto 1.9 X10*3/uL (1.2-4.9); Lymphocytes Percent Auto 21.6 % (20-40); Mean Corpuscular HGB Conc 35.8 g/dl (31.0-36.0); Mean Corpuscular Hemoglobin 35.8 pg (27.0-33.0); Mean Platelet Volume 9.4 fL (9.4-12.4); Monocytes Absolute Auto 0.9 X10*3/uL (0.1-1.2); Monocytes Percent Auto 9.7 % (2-11); Platelet Count 122 X10*3/uL (160-400); Red Blood Count 2.96 X10*6/uL (4.60-5.80); Red Cell Distribution Width 15.9 % (11.0-16.0)
[2022-04-02 07:04] LABS: Alanine Aminotransferase 30 U/L (0-40); Albumin Level 2.5 g/dL (3.5-5.0); Alkaline Phosphatase 115 U/L (39-117); Aspartate Amino Transferase 39 U/L (5-37); Bilirubin Total 0.5 mg/dL (0.0-1.0); Blood Urea Nitrogen 5 mg/dL (9-16); Calcium 7.9 mg/dL (8.4-10.2); Creatinine Clr Calc Pharmacy 166.4; Estimated Glomerular Filt Rate > 60; Glucose Fasting 75 mg/dL (60-99); Total Protein 6.2 g/dL (6.5-8.0)
[2022-04-02 07:15] LABS: Anion Gap 13 (12-20); Carbon Dioxide 19 mmol/L (22-29); Chloride 106 mmol/L (96-108); Potassium 2.7 mmol/L (3.3-5.1); Sodium 135 mmol/L (135-145)
[2022-04-02 07:59] VITALS: BP 142/65; PULSE 93; RESP 20; TEMP 36.1; O2SAT 99
[2022-04-02] MEDS: Potassium Chloride ER 20 MEQ TAB.ER.PRT 40 MEQ PO (08:48)
[2022-04-02] MEDS: Acetaminophen 325 MG TABLET 650 MG PO (08:51)
[2022-04-02] MEDS: Folic Acid 1 MG TABLET PO (08:52)
[2022-04-02] MEDS: diphenhydrAMINE HCL 50 MG/ML VIAL 25 MG IVPUSH (08:52)
[2022-04-02] MEDS: Thiamine HCL 100 MG TABLET PO (08:52)
[2022-04-02] MEDS: Nicotine 21 MG PATCH.TD24 TRANSDERMA (08:53)
[2022-04-02] MEDS: Hydrocortisone Sod Succ/PF 100 MG VIAL IVPUSH (08:53)
[2022-04-02 09:26] LABS: Lyme Abs Screen <0.90 index
[2022-04-02] MEDS: Immun Glob G(IgG)/Gly/IGA Ov50 200 ML IV (11:02)
[2022-04-02 11:34] VITALS: BP 110/73; PULSE 93; RESP 20; TEMP 36.4; O2SAT 98
--- NOTE | 2022-04-02 12:39 | PM.DS ---
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 with complaints of bilateral leg weakness, numbness and tingling.? He has also had difficulty ambulating as a result of his weakness in the leg.? Patient reports that he has also been feeling numbness and tingling in his hands.? This started happening around 4 days ago.? Progressively worsening.? Denies any difficulty swallowing, no shortness of breath or difficulty with breathing. ? he is complaining of constipation, decreased appetite, nausea with no vomiting.? In diffuse abdominal pain.? He does report that he was treated for dermatitis of his feet bilaterally recently with improvement.? He reports no infection at this time.? He denies any recent travel or? sick contacts.? Denies any fever or chills.LP was done which showed significantly elevated protein levels, patient will be admitted? for further management. Hospital course Initially patient was nonambulatory however started on IV IgG for presumptive [place]ina [place]. Seen by Neurology who agreed with treatment. After 2 doses the patient was able to ambulate and on day of discharge he has completed 5 doses and is essentially back to baseline. He will be discharged home with physical therapy and nursing services to follow-up with PCP in 2 weeks Time Spent with Patient Time attestation: Total time spent providing and/or coordinating discharge services: Discharge coordination time: Greater than 30 minutes Quality: Safe Use of Opioids Does Pt have an Active Cancer Diagnosis on the Problem List?: No Quality: Stroke Does the patient have a stroke diagnosis?: No Physical Exam Vital Signs: Vital Signs: Last Vital Signs Temp 97.6 F 04/02/22 11:34 Pulse 93 04/02/22 11:34 Resp 20 04/02/22 11:34 BP 110/73 04/02/22 11:34 Pulse Ox 98 04/02/22 11:34 O2 Del Method 04/02/22 11:34 BMI result Body Mass Index 19.0 Const: Other: Awake alert oriented x3 no acute distress Resp: Other: Clear to auscultation bilaterally no rales rhonchi or wheezes Cardio: Other: No S4; positive S1-S2; no S3 murmurs rubs or gallops Neuro: Other: Cranial nerves 2-12 grossly intact as tested. Motor is 5/5 all extremities sensation is intact Extrem: Other: No edema DS: Data Data Completed and Pending Labs on day of discharge: Laboratory Results - last 24 hr 03/28/22 04/02/22 04/02/22 20:16 00:47 00:47 WBC RBC Hgb Hct MCV MCH MCHC RDW Plt Count MPV Immature Gran % (Auto) Neut % (Auto) Lymph % (Auto) [place] % (Auto) Eos % (Auto) Baso % (Auto) Lymph # (Auto) [place] # (Auto) Eos # (Auto) Baso # (Auto) Abs Immat Gran (auto) Absolute Neuts (auto) Absolute Nucleated RBC Nucleated RBC % (auto) Sodium 134 L Potassium 2.8 L Chloride 105 Carbon Dioxide 19 L Anion Gap 13 BUN 4 L Creatinine 0.53 Estim Creat Clear Calc 166.4 Estimated GFR > 60 Random Glucose 80 Fasting Glucose Calcium 7.9 L Total Bilirubin AST ALT Alkaline Phosphatase B-Natriuretic Peptide 282 H Total Protein Albumin Lyme Screen IgG & IgM <0.90 04/02/22 04/02/22 05:55 05:55 WBC 9.0 RBC 2.96 L Hgb 10.6 L Hct 29.6 L MCV 100.0 H MCH 35.8 H MCHC 35.8 RDW 15.9 Plt Count 122 L MPV 9.4 Immature Gran % (Auto) 0.7 H Neut % (Auto) 67.0 Lymph % (Auto) 21.6 [place] % (Auto) 9.7 Eos % (Auto) 0.6 Baso % (Auto) 0.4 Lymph # (Auto) 1.9 [place] # (Auto) 0.9 Eos # (Auto) 0.1 Baso # (Auto) 0.0 Abs Immat Gran (auto) 0.06 H Absolute Neuts (auto) 6.0 Absolute Nucleated RBC 0.000 Nucleated RBC % (auto) 0.0 Sodium 135 Potassium 2.7 L Chloride 106 Carbon Dioxide 19 L Anion Gap 13 BUN 5 L Creatinine 0.53 Estim Creat Clear Calc 166.4 Estimated GFR > 60 Random Glucose Fasting Glucose 75 Calcium 7.9 L Total Bilirubin 0.5 AST 39 H ALT 30 Alkaline Phosphatase 115 B-Natriuretic Peptide Total Protein 6.2 L Albumin 2.5 L Lyme Screen IgG & IgM Preliminary micro results at discharge 03/28/22 17:17 Blood Culture - Preliminary Blood - Venous No growth after 48 hours. 03/28/22 17:00 Blood Culture - Preliminary Blood - Venous No growth after 48 hours. Discharge Plan Discharge Anticipated Discharge Date/Time: 04/02/22 12:33 Patient Disposition: Home Health Service Discharge Diagnosis: Guillain Barree Referrals: Geo Keen FNP-JACEK [Primary Care Provider] - 1 Week Juan Uribe MD [Physician] - Discharge Medications: No Action No Known Home Meds Discharge Orders: Discharge Order (Routine); Ordered 04/02/22 Ordered By: Ishaan White Diet: Advance to usual diet Activity on Discharge: As tolerated Stand Alone Forms: Patient Portal Discharge page Activity Restrictions/Additional Instructions: Please be sure to stay well hydrated, encourage herself to have small frequent meals throughout the day. You should consider refraining or decreasing your alcohol consumption. As we discussed, based on the CT scan of your abdomen it is possible that you may have an inflammatory bowel condition, given your abdominal pain as well as poor appetite and weight loss you need to follow-up with the gastroenterology office. You have been given the contact information, please contact their office to arrange for further follow-up. Return to the emergency department with any new or worsening symptoms or concerns. Care Plan Goals: No alcohol Health Concerns: Attempt to quit smoking Plan of Treatment: Follow-up with PCP 2 weeks Assessment: See discharge summary Patient Instructions: Abdominal Pain (ED)
[2022-04-02 15:13] VITALS: BP 127/76; PULSE 89; RESP 18; TEMP 36.2; O2SAT 99
--- NOTE | 2022-04-02 16:02 | MHC.CM.PN ---
Patient is planned for discharge this afternoon after completing his 5 day course of IVIG. [facility] has been referred. Updated insurance info has been sent. His will provide transportation home.
[2022-04-02 20:36] LABS: Lyme IgG CSF Immunoblot NO BANDS DETECTED; Lyme IgM CSF Immunoblot NO BANDS DETECTED
== END 2022-04-02 17:48 | disposition home health service (06) | DRG 96 ==
LOC: HO.ED 03-29 02:54 → HO.EDOVER 03-29 03:44 → HO.IMC 03-29 15:28
PROVIDERS: Emergency Medicine; Nurse Practitioner Family; Admitting Provider Internal Medicine; Emergency Provider Emergency Medicine; PCP Nurse Practitioner Family; Visit Provider Hospitalist
DX: G61.0 Guillain-Barre syndrome (principal); G62.9 Polyneuropathy, unspecified; D69.6 Thrombocytopenia, unspecified; F17.210 Nicotine dependence, cigarettes, uncomplicated; F10.10 Alcohol abuse, uncomplicated; Z71.6 Tobacco abuse counseling; E83.42 Hypomagnesemia; Z20.822 Contact with and (suspected) exposure to COVID-19
CPT/HCPCS: 36415; 71046; 74177; 80048; 80053; 81003; 82077; 82248; 82607; 82746; 82945; 83605; 83690; 83735; 83880; 84157; 84484; 85025; 85610; 86617; 86618; 87015; 87040; 87070; 87205; 87476; 87635; 89051; 93005; 94010; 96361; 96365; 96366; 96367; 97116; 97162; 97530; 99285; J1200; J1569; J1650; J3475; Q9967

== ENCOUNTER 2023-01-01 19:08 | Emergency (ER) | payer OTHER, SELFPAY ==
[2023-01-01 19:22] VITALS: BP 123/74; PULSE 105; RESP 20; TEMP 36.6; O2SAT 96; BMI 15.9
--- NOTE | 2023-01-01 19:22 | ED.GENADULT ---
HPI - General Adult General Chief complaint: Dental/Oral Stated complaint: L->R sided cheek is swollen and infected? Time Seen by Provider: 01/01/23 22:30 Source: patient Mode of arrival: ambulatory History of Present Illness HPI narrative: 42-year-old male with poor dentition but no history of diabetes states that he had a right lower tooth infection and then developed left upper tooth infection with associated facial swelling for 3-4 days denies any difficulty with swallowing or breathing at this time. Related Data Previous Rx's Medication Instructions Recorded tramadol 50 mg tablet 50 mg PO BID PRN pain 10 days #20 04/09/22 tabs amoxicillin 875 mg-potassium 1 tab PO BID 7 days #14 tabs 01/02/23 clavulanate 125 mg tablet Allergies Allergy/AdvReac Type Severity Reaction Status Date / Time No Known Allergies Allergy Verified 01/01/23 19:22 Review of Systems Review of Systems: Pertinent positives and negatives as stated in HPI [facility] Past Medical History Source: nursing notes reviewed Medical History Dermatitis ETOH abuse Surgical History No pertinent past surgical history Family History Family History Father Heart disease Social History Social History Household Members: Spouse Housing: Apartment Do you presently have visiting nurse or other home services: No Alcohol intake: current Alcohol intake frequency: a few times a week Alcohol type: hard liquor Patient Tobacco Use Status: Current everyday Tobacco user Tobacco use type: Cigarette Cigarettes Per Day: 10 Smoked in Last 30 Days: Yes e-Cigarette/Vaping Use: Never Used Second Hand Smoke Exposure: Yes Use of substances other than those prescribed or required for medical reasons: No Advance Directives: Yes Advance Directives on File: Yes Advance Directives Date on File: 03/29/22 service: No Current occupational status: employed Current occupation: [employer] Current occupational exposures/hazards: No Cognitive needs: No Hearing needs: No Vision needs: No Physical Exam ED Vital Signs: Vital Signs - 24 hr 01/01/23 19:22 01/01/23 20:21 01/01/23 22:05 Temperature 97.8 F 98 F Pulse Rate 105 H 108 H 91 Respiratory Rate 20 18 Blood Pressure 123/74 110/77 Pulse Oximetry 96 98 97 Oxygen Delivery Method Room Air Room Air Room Air 01/01/23 22:28 01/02/23 00:24 Temperature 98.6 F 98.2 F Pulse Rate 88 88 Respiratory Rate 15 18 Blood Pressure 109/63 102/62 Pulse Oximetry 97 97 Oxygen Delivery Method Room Air Room Air BMI result Body Mass Index 15.9 VITAL SIGNS: Reviewed. GENERAL: Well developed, well nourished, in no acute distress. HEAD: Normocephalic/atraumatic EYES: PERRLA, EOMI EARS: Ext canals without abnormality, TMs non-bulging and non-erythematous NOSE: Nares patent bilateral OROPHARYNX: no oral lesions noted, posterior pharynx clear , there is noted tooth infection/abscess at the left upper molar NECK: Supple, no adenopathy LUNGS: Normal breath sounds. No adventitious sounds or accessory muscle use. SpO2<97> CARDIOVASCULAR: Regular rate and rhythm without noted murmurs ABDOMEN: Soft, non-tender, non-distended with bowel sounds. MUSCULOSKELETAL: No tenderness, deformities, or effusions noted on gross inspection. EXTREMITIES: No cyanosis, clubbing or edema. SKIN: Inspection of the skin reveals no rashes NEUROLOGIC: Alert and oriented x 4. Strength and sensation to light touch were grossly intact x 4. Course Course Course Narrative: This is an RME: Additional HPI, ROS, PE not included below will be deferred to primary provider. This is a [id number]-male, with a past medical history of Guillain-[place], etoh abuse, chronic anemia, and dermatitis, presenting to the emergency department with a complaint of facial swelling and dental pain x 4 days. Known dental problems. Pt called dentist but states that he was too sick he couldn't make the appointment. VSS. [id number] - patient reported to triage area stating that he is now short of breath and complaining of chest pain. Reports that he is afraid that dental infection is travel to his blood. 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 labs, ekg, chest xray ordered. Medications Administered Discontinued Medications Generic Name Dose Route Start Last Admin Trade Name Freq PRN Reason Stop Dose Admin Sodium Chloride 1,000 mls @ 999 mls/hr 01/01/23 21:15 01/01/23 22:04 Ns IV 01/01/23 22:15 Infused .Q1H1M SHAQ Infusion Piperacillin Sod/Tazobactam 50 mls @ 100 mls/hr 01/01/23 22:49 01/01/23 23:34 Sod 3.375 gm/ Sodium Chloride IV 01/01/23 23:18 100 mls/hr ONCE ONE Administration Medical Decision Making Medical Decision Making [facility] Narrative: 42-year-old male with history and clinical presentation consistent with dental abscess/infection but no trismus or difficulties with airway or swallowing. On review of been best occasions hematologic indices demonstrate a leukocytosis although patient is afebrile, chemistries are significant for an elevated lactic acid but on repeat they have normalized and otherwise chemistries are grossly within normal limits. Patient received 1 L of IV fluids as well as IV antibiotics but is otherwise stable for discharge to home with remaining course of antibiotics and strict instructions to follow-up with his dentist. Differential Diagnosis Please see the discussion above Admission/Observation Consideration of admission/observation: Escalation of care including admission/observation considered Lab Data Please see the discussion above 01/01/23 20:41 01/01/23 20:41 Labs: Lab Results 01/01/23 01/01/23 01/01/23 Range/Units 20:40 20:41 20:41 WBC 15.1 H (4.8-10.8) X10*3/uL RBC 4.65 D (4.60-5.80) X10*6/uL Hgb 14.9 D (14.0-18.0) g/dl Hct 43.2 D (42.0-52.0) % MCV 92.9 (80.0-98.0) fL MCH 32.0 (27.0-33.0) pg MCHC 34.5 (31.0-36.0) g/dl RDW 13.2 (11.0-16.0) % Plt Count 336 D (160-400) X10*3/uL MPV 8.9 L (9.4-12.4) fL Immature Gran % (Auto) 0.4 (0.0-0.4) % Neut % (Auto) 68.9 (45-73) % Lymph % (Auto) 18.5 L (20-40) % [place] % (Auto) 9.3 (2-11) % Eos % (Auto) 2.2 (0-4) % Baso % (Auto) 0.7 (0-2) % Lymph # (Auto) 2.8 (1.2-4.9) X10*3/uL [place] # (Auto) 1.4 H (0.1-1.2) X10*3/uL Eos # (Auto) 0.3 (0.0-0.4) X10*3/uL Baso # (Auto) 0.1 (0.0-0.2) X10*3/uL Abs Immat Gran (auto) 0.06 H (0.00-0.03) X10*3/uL Absolute Neuts (auto) 10.4 H (2.0-8.3) x10*3/uL Absolute Nucleated RBC 0.000 (0.0-0.012) X10*3/uL Nucleated RBC % (auto) 0.0 (0.0-0.2) /100WBC Sodium 143 (135-145) mmol/L Potassium 3.9 D (3.3-5.1) mmol/L Chloride 106 (96-108) mmol/L Carbon Dioxide 24 (22-29) mmol/L Anion Gap 17 (12-20) BUN 9 (9-16) mg/dL Creatinine 0.69 (0.5-1.4) mg/dL Estim Creat Clear Calc 101.4 Estimated GFR > 60 Random Glucose 114 (60-115) mg/dL Lactic Acid (0.5-2.0) mmol/L Lactic Acid F/U @ 2Hr (0.5-2.0) mmol/L Calcium 10.0 D (8.4-10.2) mg/dL Total Bilirubin 0.6 (0.0-1.0) mg/dL Direct Bilirubin 0.2 (0.0-0.5) mg/dL AST 27 (5-37) U/L ALT 16 (0-40) U/L Alkaline Phosphatase 103 (39-117) U/L Troponin I High Sens (<3.5-35.0) ng/L Total Protein 7.4 (6.5-8.0) g/dL Albumin 4.3 (3.5-5.0) g/dL Ethyl Alcohol 182 mg/dL 01/01/23 01/01/23 01/01/23 Range/Units 20:41 20:41 23:01 WBC (4.8-10.8) X10*3/uL RBC (4.60-5.80) X10*6/uL Hgb (14.0-18.0) g/dl Hct (42.0-52.0) % MCV (80.0-98.0) fL MCH (27.0-33.0) pg MCHC (31.0-36.0) g/dl RDW (11.0-16.0) % Plt Count (160-400) X10*3/uL MPV (9.4-12.4) fL Immature Gran % (Auto) (0.0-0.4) % Neut % (Auto) (45-73) % Lymph % (Auto) (20-40) % [place] % (Auto) (2-11) % Eos % (Auto) (0-4) % Baso % (Auto) (0-2) % Lymph # (Auto) (1.2-4.9) X10*3/uL [place] # (Auto) (0.1-1.2) X10*3/uL Eos # (Auto) (0.0-0.4) X10*3/uL Baso # (Auto) (0.0-0.2) X10*3/uL Abs Immat Gran (auto) (0.00-0.03) X10*3/uL Absolute Neuts (auto) (2.0-8.3) x10*3/uL Absolute Nucleated RBC (0.0-0.012) X10*3/uL Nucleated RBC % (auto) (0.0-0.2) /100WBC Sodium (135-145) mmol/L Potassium (3.3-5.1) mmol/L Chloride (96-108) mmol/L Carbon Dioxide (22-29) mmol/L Anion Gap (12-20) BUN (9-16) mg/dL Creatinine (0.5-1.4) mg/dL Estim Creat Clear Calc Estimated GFR Random Glucose (60-115) mg/dL Lactic Acid 2.4 H* (0.5-2.0) mmol/L Lactic Acid F/U @ 2Hr 1.7 (0.5-2.0) mmol/L Calcium (8.4-10.2) mg/dL Total Bilirubin (0.0-1.0) mg/dL Direct Bilirubin (0.0-0.5) mg/dL AST (5-37) U/L ALT (0-40) U/L Alkaline Phosphatase (39-117) U/L Troponin I High Sens < 2.7 (<3.5-35.0) ng/L Total Protein (6.5-8.0) g/dL Albumin (3.5-5.0) g/dL Ethyl Alcohol mg/dL Independent Interpretation I performed an independent interpretation of an: EKG Interpretation: Normal sinus rhythm, HR-82, no STEMI, AK/QRS/QTC is within normal limits. Radiology Impression Radiologist Impression: No pneumonia, otherwise my interpretation is in agreement with radiology's impression External Record Review External record reviewed: Outpatient record and Prior outpatient labs Discharge Plan Discharge Clinical Impression: Abscessed tooth Patient Disposition: Home, Self-Care Instructions: Dental Abscess (ED) Additional Instructions: 1. Complete the entire course of antibiotics and reschedule your dental appointment. Return to the ER for any worsening symptoms. Prescriptions: New amoxicillin-pot clavulanate 875-125 mg tablet 1 tab PO BID 7 Days Qty: 14 0RF No Action tramadol 50 mg tablet 50 mg PO BID PRN (Reason: pain) 10 Days Qty: 20 0RF Referrals: Geo Keen, ENVIRONMENT[employer] ENGINEERING [employer]ISTANT[facility] [Primary Care Provider] -
[2023-01-01 20:21] VITALS: PULSE 108; O2SAT 98
--- NOTE | 2023-01-01 21:07 | PC.NURSE ---
critical lactic 2.4 received from lab @@21:05. will alert RN
--- NOTE | 2023-01-01 21:17 | PC.NURSE ---
20g iv placed in left forearm, lactic, cultures, sent. 1l NS infusing- pt stated to MINAL marinelli that he can't breathe pt spO2 98% on RA, no increased work of breathing noted. Pt sts that he did not go to the dentist becasue he thought about going, but then i got anxious, and then i got sick. pt stated to t/w that he was drinking today in an attempt to relieve pain. ethanol drawn, cxr ordered, ekg taken- awaiting ed provider, call del angel within reach
[2023-01-01 22:05] VITALS: BP 110/77; PULSE 91; RESP 18; TEMP 36.6; O2SAT 97
[2023-01-01 22:28] VITALS: BP 109/63; PULSE 88; RESP 15; TEMP 37; O2SAT 97
--- NOTE | 2023-01-01 23:40 | PC.NURSE ---
This blog writer assumed care of this Pt at [id number]. Pt A&Ox4, reports 10/10 constant tooth pain. Pt reports right lower back molar tooth pain, and left upper tooth pain. Redness and swelling noted to areas.
[2023-01-02 00:24] VITALS: BP 102/62; PULSE 88; RESP 18; TEMP 36.8; O2SAT 97
[2023-01-02 02:14] VITALS: BP 114/76; PULSE 95; RESP 17; O2SAT 95
--- NOTE | 2023-01-02 02:15 | PC.NURSE ---
pt a&o, no sob or chest pain, no sign of distress, Iv removed, Reviewed discharge instructions wtih pt, pt verbalized understanding.
== END 2023-01-02 02:18 | disposition home or self-care (01) ==
PROVIDERS: Emergency Provider Student in an Organized Health Care Education/Training Program; PCP Nurse Practitioner Family
DX: K04.7 Periapical abscess without sinus (principal); K08.89 Other specified disorders of teeth and supporting structures; E11.9 Type 2 diabetes mellitus without complications; F17.210 Nicotine dependence, cigarettes, uncomplicated; Z79.899 Other long term (current) drug therapy
CPT/HCPCS: 36415; 71046; 80048; 80076; 80307; 83605; 84484; 85025; 87040; 93005; 96361; 96374; 99284; 99285; J2543